=== PATIENT | male | born 1950 | race Caucasian/White ===

== ENCOUNTER → 2021-01-12 08:40 | Outpatient (CLI) | payer MEDICARE, OTHER, SELFPAY ==
[2021-01-12 13:24] LABS: COVID19 -Nasal RAPID Negative (Negative)
== END ==
PROVIDERS: Visit Provider Nurse Practitioner Family
DX: Z20.822 Contact with and (suspected) exposure to COVID-19 (principal); Z01.812 Encounter for preprocedural laboratory examination
CPT/HCPCS: 87635; C9803

== ENCOUNTER 2021-01-13 08:15 | Day surgery (SDC) | payer MEDICARE, OTHER, SELFPAY ==
[2021-01-13 09:17] VITALS: BP 135/80; PULSE 79; RESP 16; TEMP 36.4; O2SAT 97; BMI 29.0
[2021-01-13] MEDS: PROPARACAINE 0.5% OPHTH SOL 2 DROPS EYE-OP (09:23)
[2021-01-13] MEDS: CATARACT EYE COMPOUND (10 DROPS/SYRINGE) 3 DROPS EYE-OP (09:23)
--- NOTE | 2021-01-13 10:01 | PM.PREOP ---
Pre-operative Note Interval Note History & Physical reviewed/Exam performed by Physician: Yes Changes to H&P: No
--- NOTE | 2021-01-13 10:02 | PM.OP.1 ---
Operative Date/Time/Diagnoses Pre-op diagnosis: Nuclear cataract right eye Procedure & Clinicians Procedure: Cataract Surgery Same procedure as scheduled: Yes Surgeon: Kg Valencia Anesthesia Type: MAC +/- and Sedation Operative Notes Procedure in detail: Patient brought to the operating suite. Tetracaine drops placed in the right eye. Patient was prepped and draped in sterile manner. Wire lid speculum was placed in the eye. Betadine drops were placed on the eye. This was irrigated. Lidocaine jelly was placed on the eye. A paracentesis port was created with a side-port blade. 0.1 mL 1% preservative free lidocaine was injected into the anterior chamber. The anterior chamber was deepened with viscoelastic. 2.6 mm keratome was used to create a temporal clear corneal incision. The pupil was miotic from posterior synechiae. The synechiae were broken with second instrument. Cystotome and Utrata forceps were used to create continuous tear capsulorrhexis. Balanced salt solution was used to hydro dissect the nucleus. The phacoemulsification handpiece was inserted and the nucleus was removed using the stop and chop technique. The iris was floppy. The irrigation aspiration handpiece was inserted and the remaining cortex was removed. Anterior chamber was deepened with viscoelastic. An Bauer DIB00 intraocular lens with a power of 21.0 was injected into the capsular bag. Irrigation aspiration handpiece was inserted and the remaining viscoelastic was removed. Incision was hydrated with balanced salt solution and found to be leak free with pressure with Weck-Haley sponges. 0.1 mL Vigamox injected anterior chamber. 0.3 mL Kenalog 10 mg was injected subconjunctivally. Lid speculum was removed. The patient left the operating room in excellent condition. Complications: none Post-operative Condition: stable Disposition: same day surgery
[2021-01-13] MEDS: HYALURONATE SODIUM 30 MG-10 MG/ML SYRINGES 1 BOX INTRAOCULA (10:16)
[2021-01-13] MEDS: LIDOCAINE 2% (GLYDO) 6 ML GEL TOP (10:16)
[2021-01-13] MEDS: PHENYLEPHRINE/LIDOCAINE VIAL (OR) 0.2 ML EYE-OP (10:17)
[2021-01-13] MEDS: TETRACAINE 0.5% OPHTH DROPS 4 ML 2 DROPS EYE-OP (10:17)
[2021-01-13] MEDS: MOXIFLOXACIN INJ 4 MG/0.8 ML VIAL 0.5 MG EYE-OP (10:17)
[2021-01-13] MEDS: TRIAMCINOLONE 50 MG/5 ML VIAL INJ (10:17)
[2021-01-13] MEDS: BALANCED SALT IRRIG SOLN NO.2 500 ML, EPINEPHrine 1 MG IRR (10:18)
[2021-01-13 10:45] VITALS: BP 112/68; PULSE 70; RESP 20; TEMP 36.4; O2SAT 96
== END 2021-01-13 10:46 | disposition home or self-care (01) ==
PROVIDERS: Referring Provider Ophthalmology; Visit Provider Ophthalmology
PROC: (CPT 66984; principal; 2021-01-13 10:15)
DX: H25.11 Age-related nuclear cataract, right eye (principal); E78.00 Pure hypercholesterolemia, unspecified; I10 Essential (primary) hypertension
CPT/HCPCS: 66984; J0171; J2250; J3010; J3301

== ENCOUNTER → 2021-01-26 08:17 | Outpatient (CLI) | payer MEDICARE, OTHER, SELFPAY ==
[2021-01-26 11:13] LABS: COVID19 -Nasal RAPID Negative (Negative)
== END ==
PROVIDERS: Visit Provider Nurse Practitioner Family
DX: Z20.822 Contact with and (suspected) exposure to COVID-19 (principal); Z01.812 Encounter for preprocedural laboratory examination
CPT/HCPCS: 87635; C9803

== ENCOUNTER 2021-01-27 10:41 | Day surgery (SDC) | payer MEDICARE, OTHER, SELFPAY ==
[2021-01-27 11:37] VITALS: BP 134/82; PULSE 82; RESP 16; TEMP 36.4; O2SAT 96; BMI 29.0
[2021-01-27] MEDS: PROPARACAINE 0.5% OPHTH SOL 2 DROPS EYE-OP (11:37)
[2021-01-27] MEDS: CATARACT EYE COMPOUND (10 DROPS/SYRINGE) 3 DROPS EYE-OP (11:43)
--- NOTE | 2021-01-27 11:52 | PM.PREOP ---
Pre-operative Note Interval Note History & Physical reviewed/Exam performed by Physician: Yes Changes to H&P: No
--- NOTE | 2021-01-27 11:52 | PM.OP.1 ---
Operative Date/Time/Diagnoses Pre-op diagnosis: Nuclear Cataract Left eye Post-op diagnosis: same Procedure & Clinicians Same procedure as scheduled: Yes Surgeon: Kg Valencia Anesthesia Type: MAC +/- and Sedation Operative Notes Procedure in detail: Patient brought to the operating suite. Tetracaine drops placed in the left eye. Patient was prepped and draped in sterile manner. Wire lid speculum was placed in the eye. Betadine drops were placed on the eye. This was irrigated. Lidocaine jelly was placed on the eye. A paracentesis port was created with a side-port blade. 0.1 mL 1% preservative free lidocaine was injected into the anterior chamber. The anterior chamber was deepened with viscoelastic. 2.6 mm keratome was used to create a temporal clear corneal incision. Cystotome and Utrata forceps were used to create continuous tear capsulorrhexis. Balanced salt solution was used to hydro dissect the nucleus. The phacoemulsification handpiece was inserted and the nucleus was removed using the stop and chop technique. The irrigation aspiration handpiece was inserted and the remaining cortex was removed. Anterior chamber was deepened with viscoelastic. An Bauer DIB00 intraocular lens with a power of 21.5 was injected into the capsular bag. Irrigation aspiration handpiece was inserted and the remaining viscoelastic was removed. Incision was hydrated with balanced salt solution and found to be leak free with pressure with Weck-Haley sponges. 0.1 mL Vigamox injected anterior chamber. 0.3 mL Kenalog 10 mg was injected subconjunctivally. Lid speculum was removed. The patient left the operating room in excellent condition. Complications: none Post-operative Condition: stable Disposition: same day surgery
[2021-01-27] MEDS: MOXIFLOXACIN INJ 4 MG/0.8 ML VIAL 0.5 MG EYE-OP (12:21)
[2021-01-27] MEDS: LIDOCAINE 2% (GLYDO) 6 ML GEL TOP (12:21)
[2021-01-27] MEDS: HYALURONATE SODIUM 30 MG-10 MG/ML SYRINGES 1 BOX INTRAOCULA (12:21)
[2021-01-27] MEDS: PHENYLEPHRINE/LIDOCAINE VIAL (OR) 0.2 ML EYE-OP (12:21)
[2021-01-27] MEDS: BALANCED SALT IRRIG SOLN NO.2 500 ML, EPINEPHrine 1 MG IRR (12:22)
[2021-01-27] MEDS: TRIAMCINOLONE 50 MG/5 ML VIAL INJ (12:22)
[2021-01-27] MEDS: TETRACAINE 0.5% OPHTH DROPS 4 ML 2 DROPS EYE-OP (12:22)
[2021-01-27 12:32] VITALS: BP 112/73; PULSE 74; RESP 15; TEMP 36.4; O2SAT 95
[2021-01-27 12:40] VITALS: BP 109/69; PULSE 69; RESP 16; O2SAT 99
== END 2021-01-27 12:55 | disposition home or self-care (01) ==
PROVIDERS: Referring Provider Ophthalmology; Visit Provider Ophthalmology
PROC: (CPT 66984; principal; 2021-01-27 12:45)
DX: H25.12 Age-related nuclear cataract, left eye (principal)
CPT/HCPCS: 66984; J0171; J2250; J3010; J3301

== ENCOUNTER → 2022-02-16 13:12 | Outpatient (CLI) | payer MEDICARE, OTHER, SELFPAY ==
--- NOTE | 2022-02-16 13:14 | DI.RAD.S_ITS ---
PROCEDURE: XR KUB INDICATIONS: kidney stones TECHNIQUE: One view of the abdomen acquired. COMPARISON: None. FINDINGS: Surgical changes and devices: Bilateral hip arthroplasties. Bowel: Bowel gas pattern is normal. Soft tissues: No definite renal stones are identified. Small densities are identified in expected region of the renal shadows which appear related to stool in the right and transverse colon.. Visualized solid organ contours appear normal in size. Hernia mesh anchors noted. Bones: No suspicious bony lesions. IMPRESSION: No definite renal stone by plain film radiograph. Consider CT KUB for additional evaluation if there is continued concern for renal stone. Dictated by: Linda Underwood MD, PhD on 02/16/2022 at 14:17 Approved by: Linda Underwood MD, PhD on 02/16/2022 at 14:18
== END ==
PROVIDERS: PCP Internal Medicine; Referring Provider Specialist; Visit Provider Specialist
DX: N40.1 Benign prostatic hyperplasia with lower urinary tract symptoms (principal); N13.8 Other obstructive and reflux uropathy
CPT/HCPCS: 74018

== ENCOUNTER → 2022-08-19 09:56 | Outpatient (CLI) | payer MEDICARE, OTHER, SELFPAY ==
--- NOTE | 2022-08-19 10:01 | DI.RAD.S_ITS ---
PROCEDURE: XR KUB INDICATIONS: possible kidney stones TECHNIQUE: One view of the abdomen acquired. COMPARISON: [facility], CR, XR KUB, 02/16/2022, 13:28. FINDINGS: Surgical changes and devices: Bilateral hip arthroplasty. Bowel: Bowel gas pattern is normal. Soft tissues: 5 mm calcification projects over the superior pole left kidney. 5 memory calcification projects over the inferior pole right kidney.. Visualized solid organ contours appear normal in size. Bones: No suspicious bony lesions. IMPRESSION: Calcifications projecting over the bilateral kidneys. Dictated by: Jhon Lombardo M.D. on 08/19/2022 at 11:50 Transcribed by: DEVIN on 08/19/2022 at 11:50 Approved by: Jhon Lombardo M.D. on 08/19/2022 at 15:54
[2022-08-19 11:44] LABS: Prostate Specific Antigen 1.74 ng/mL (0.10-4.00)
== END ==
PROVIDERS: PCP Internal Medicine; Referring Provider Specialist; Visit Provider Specialist
DX: N40.1 Benign prostatic hyperplasia with lower urinary tract symptoms (principal); N13.8 Other obstructive and reflux uropathy; N20.0 Calculus of kidney
CPT/HCPCS: 36415; 74018; 84153

== ENCOUNTER → 2022-10-01 06:43 | Outpatient (CLI) | payer MEDICARE, OTHER, SELFPAY ==
[2022-10-01 08:04] LABS: Hematocrit 41.9 % (41-53); Hemoglobin 14.6 g/dL (13.5-17.5); Mean Corpuscular HGB Conc 34.7 % (30-36); Mean Corpuscular Hemoglobin 31.5 PG (26-34); Mean Corpuscular Volume 90.7 fL (80-100); Platelet Count 238 X10^3/uL (150-400); Red Blood Cell Count 4.63 X10^6/uL (4.5-5.9); Red Cell Distribution Width 13.6 % (11.6-14.8); White Blood Cell Count 5.4 X10^3/uL (4.5-11.0)
[2022-10-01 08:26] LABS: Alanine Aminotransferase 27 IU/L (<50); Albumin 4.2 g/dL (3.5-5.0); Albumin Globulin Ratio 1.8 (1.0-2.8); Alkaline Phosphatase 67 U/L (38-126); Aspartate Aminotransferase 28 IU/L (17-59); BUN Creatinine Ratio 16.8 (6-22); Bilirubin Total 1.3 mg/dL (0.2-1.3); Blood Urea Nitrogen 16 mg/dL (9-20); Calcium 9.2 mg/dL (8.4-10.2); Carbon Dioxide 26 mmol/L (22-32); Chloride 105 mmol/L (98-107); Cholesterol 156 mg/dL (140-199); Estimated Glomerular Filt Rate > 60 mL/min (>60); Globulin 2.4 g/dL (1.7-4.1); Glucose 107 mg/dL (80-110); HDL Cholesterol 55 mg/dL (40-60); HEMOLYSIS < 15 (0-50); LDL Cholesterol Calculated 68 mg/dL (<100); Potassium 4.3 mmol/L (3.4-5.1); Sodium 140 mmol/L (137-145); Total Protein 6.6 g/dL (6.3-8.2); Triglycerides 163 mg/dL (35-150)
[2022-10-01 08:44] LABS: TSH w/ Reflex to FT4 1.33 uIU/mL (0.47-4.68)
[2022-10-02 05:25] LABS: Labcorp Hemoglobin (Hb) A1c 5.9 % (4.8-5.6)
== END ==
PROVIDERS: PCP Internal Medicine; Referring Provider Internal Medicine; Visit Provider Internal Medicine
DX: E78.2 Mixed hyperlipidemia; I10 Essential (primary) hypertension
CPT/HCPCS: 36415; 80053; 80061; 83036; 84443; 85027

== ENCOUNTER → 2023-07-20 10:30 | Outpatient (CLI) | payer MEDICARE, OTHER, SELFPAY ==
--- NOTE | 2023-07-20 10:31 | DI.RAD.S_ITS ---
PROCEDURE: XR KUB INDICATIONS: Kidney stones TECHNIQUE: One view of the abdomen acquired. COMPARISON: [facility], CR, XR KUB, 08/19/2022, 10:27. FINDINGS: Surgical changes and devices: Bilateral hip arthroplasties. Pelvic mesh. Bowel: Prominent stool in the colon. No dilated loops of small bowel identified. Soft tissues: Bilateral kidney stones are again seen. Right 0.5 cm. Left 0.8 cm. No suspicious abdominal calcifications. Visualized solid organ contours appear normal in size. Bones: No suspicious bony lesions. IMPRESSION: Bilateral kidney stones appear unchanged. Prominent stool in the colon. Dictated by: Cezar Mcgovern M.D. on 07/20/2023 at 17:30 Approved by: Cezar Mcgovern M.D. on 07/20/2023 at 17:31
[2023-07-20 12:26] LABS: Prostate Specific Antigen 1.67 ng/mL (0.10-4.00)
== END ==
PROVIDERS: PCP Internal Medicine; Referring Provider Specialist; Visit Provider Specialist
DX: N20.0 Calculus of kidney (principal); R97.20 Elevated prostate specific antigen [PSA]; Z87.898 Personal history of other specified conditions
CPT/HCPCS: 36415; 74018; 84153

== ENCOUNTER → 2023-11-07 11:45 | Outpatient (CLI) | payer MEDICARE, OTHER, SELFPAY ==
[2023-11-07 13:16] LABS: Aspartate Aminotransferase 27 IU/L (17-59); BUN Creatinine Ratio 15.7 (6-22); Blood Urea Nitrogen 16 mg/dL (9-20); Calcium 9.6 mg/dL (8.4-10.2); Carbon Dioxide 24 mmol/L (22-32); Chloride 106 mmol/L (98-107); Cholesterol 178 mg/dL (140-199); Estimated Glomerular Filt Rate > 60 mL/min (>60); Glucose 115 mg/dL (80-110); HDL Cholesterol 62 mg/dL (40-60); HEMOLYSIS < 15 (0-50); LDL Cholesterol Calculated 66 mg/dL (<100); Potassium 4.5 mmol/L (3.4-5.1); Sodium 139 mmol/L (137-145); Triglycerides 250 mg/dL (35-150)
[2023-11-07 14:06] LABS: Hemoglobin A1C% w Est Avg Glu 5.8 % (4.0-6.0)
== END ==
PROVIDERS: Family Provider Internal Medicine; PCP Internal Medicine; Referring Provider Internal Medicine; Visit Provider Internal Medicine
DX: R73.01 Impaired fasting glucose (principal); I10 Essential (primary) hypertension; E78.2 Mixed hyperlipidemia
CPT/HCPCS: 36415; 80048; 80061; 83036; 84450

== ENCOUNTER → 2024-01-05 13:32 | Outpatient (CLI) | payer MEDICARE, OTHER, SELFPAY ==
--- NOTE | 2024-01-05 13:33 | DI.RAD.S_ITS ---
PROCEDURE: XR KUB INDICATIONS: Nephrolithiasis TECHNIQUE: One view of the abdomen acquired. COMPARISON: [facility], CR, XR KUB, 07/20/2023, 10:47. FINDINGS: Stool gas pattern: Normal-no evidence of ileus or obstruction. No free intraperitoneal or extraperitoneal air. No gross evidence of ascites Soft tissues: 8 mm calcification over the inferior right kidney and 2 adjacent calcification over the inferior left kidney, 9 and 3 mm respectively , are likely nonobstructing calculi. There are 2 calcifications overl in the left true pelvis: 8 and 3 mm respectively which could represent distal left ureteral calculi. Organs: No gross evidence for organomegaly. IMPRESSION: Potential calculi overlying the inferior poles of both kidneys in the distal left ureter. Please correlate clinically Dictated by: Bong Regalado M.D. on 01/06/2024 at 8:11 Approved by: Bong Regalado M.D. on 01/06/2024 at 8:13
== END ==
PROVIDERS: Family Provider Internal Medicine; PCP Internal Medicine; Referring Provider Urology; Visit Provider Urology
DX: N20.0 Calculus of kidney (principal); N40.1 Benign prostatic hyperplasia with lower urinary tract symptoms; N13.8 Other obstructive and reflux uropathy
CPT/HCPCS: 74018

== ENCOUNTER → 2024-01-18 11:19 | Outpatient (CLI) | payer MEDICARE, OTHER, SELFPAY ==
--- NOTE | 2024-01-18 11:20 | DI.CT.S_ITS ---
PROCEDURE: CT KIDNEY URETER BLADDER (KUB) INDICATIONS: Left flank pain, concern for ureteral stone. TECHNIQUE: Axial sections were acquired from the lung bases to the pubic symphysis. Coronal and sagittal reformats were performed. For radiation dose reduction, the following was used: automated exposure control, adjustment of mA and/or kV according to patient size. COMPARISON: None. FINDINGS: Image quality: Diagnostic. Lower Chest: No significant findings. URINARY: Abnormal appearance of markedly enlarged prostate gland with lobulated bulging into the inferior base of the urinary bladder some of which may commonly be related to prostatic hypertrophy however prostate or bladder neoplasm could have this appearance and follow-up is needed. The prostate measures up to approximately 6 cm cc by 5.5 cm transverse by 4.0 cm AP with total volume approximately 68 cc. Left superior calyx nonobstructing renal calculus measures approximately 9 mm cc by 8 mm AP x 6 mm transverse maximal dimensions with Hounsfield units approximately 1159. Right inferior calyx nonobstructing renal calculus measures approximately 6 mm AP by 5 mm transverse 5 mm cc maximal dimensions with Hounsfield units approximately 897. Several calcifications in the left low pelvis appear to be within the urinary bladder suspected nonobstructing bladder calculi measuring approximately 4 mm, 3 mm and 2 mm. Several 1 mm phleboliths are noted in the pelvis as well. Moderate degenerate changes of the lower thoracic, lumbar spine with moderate levoscoliosis and suspected central stenoses most notably at T11-12, T12-L1, L1-2, L2-3, L3-4 with moderate to severe central stenosis. Suspected mild central stenosis at L4-5 and L5-S1. Evidence of prior anterior abdominal, bilateral inguinal hernia repair with mesh and metallic anchors. Bilateral hip arthroplasties with associated beam hardening artifacts partially limit evaluation of the pelvis. Right Kidney: No hydronephrosis. Right Ureter: No hydroureter. Left Kidney: No hydronephrosis. Left Ureter: No hydroureter. ABDOMEN / PELVIS: Liver: Liver is normal in size contour and attenuation. Gallbladder: No radiopaque gallstones or wall thickening. Biliary ducts: No biliary dilation. Pancreas: No ductal dilation. Spleen: Size is within normal limits. Adrenal Glands: No adrenal nodules. Stomach and Bowel: Normal caliber, without significant wall thickening. Peritoneum: No abnormal intraperitoneal fluid. No free air. Abdominal Nodes: No enlarged retroperitoneal or mesenteric lymph nodes. Vessels: Aorta and inferior vena cava are normal in size. Pelvic Nodes: Unremarkable. Miscellaneous: No inguinal hernias are seen. IMPRESSION: Abnormal markedly enlarged prostate gland with lobulated bulging into the inferior base of the urinary bladder as discussed above prostatic hypertrophy, prostate or bladder neoplasm could have this appearance and follow-up is needed. Follow-up is needed. Left renal nonobstructing calculus measures approximately 9 mm. Right nonobstructing renal calculus measures approximately 6 mm. Several suspected nonobstructing bladder calculi measuring approximately 4 mm, 3 mm and 2 mm. Moderate degenerative changes with moderate to severe central stenoses as discussed above. Dictated by: Nicko Tejada M.D. on 01/18/2024 at 14:32 Approved by: Nicko Tejada M.D. on 01/18/2024 at 14:51
== END ==
PROVIDERS: Family Provider Internal Medicine; PCP Internal Medicine; Referring Provider Urology; Visit Provider Urology
DX: N20.0 Calculus of kidney (principal); N40.0 Benign prostatic hyperplasia without lower urinary tract symptoms; R10.9 Unspecified abdominal pain; M47.814 Spondylosis without myelopathy or radiculopathy, thoracic region; M47.816 Spondylosis without myelopathy or radiculopathy, lumbar region; M48.061 Spinal stenosis, lumbar region without neurogenic claudication; Z96.643 Presence of artificial hip joint, bilateral
CPT/HCPCS: 74176

== ENCOUNTER → 2024-01-23 14:25 | Outpatient (CLI) | payer MEDICARE, OTHER, SELFPAY ==
[2024-01-23 15:46] LABS: Hematocrit 43.9 % (41-53); Mean Corpuscular HGB Conc 34.1 % (30-36); Mean Corpuscular Hemoglobin 31.6 PG (26-34); Mean Corpuscular Volume 92.7 fL (80-100); Platelet Count 224 X10^3/uL (150-400); Red Blood Cell Count 4.74 X10^6/uL (4.5-5.9); Red Cell Distribution Width 13.3 % (11.6-14.8); White Blood Cell Count 7.2 X10^3/uL (4.5-11.0)
[2024-01-23 15:56] LABS: Alanine Aminotransferase 21 IU/L (<50); Albumin 4.2 g/dL (3.5-5.0); Albumin Globulin Ratio 1.6 (1.0-2.8); Alkaline Phosphatase 63 U/L (38-126); Aspartate Aminotransferase 27 IU/L (17-59); BUN Creatinine Ratio 18.8 (6-22); Bilirubin Total 1.1 mg/dL (0.2-1.3); Blood Urea Nitrogen 19 mg/dL (9-20); Calcium 9.5 mg/dL (8.4-10.2); Carbon Dioxide 25 mmol/L (22-32); Chloride 106 mmol/L (98-107); Estimated Glomerular Filt Rate > 60 mL/min (>60); Globulin 2.7 g/dL (1.7-4.1); Glucose 119 mg/dL (80-110); HEMOLYSIS < 15 (0-50); Potassium 4.1 mmol/L (3.4-5.1); Sodium 137 mmol/L (137-145); Total Protein 6.9 g/dL (6.3-8.2)
[2024-01-23 16:27] LABS: TSH w/ Reflex to FT4 1.42 uIU/mL (0.47-4.68)
== END ==
PROVIDERS: Family Provider Internal Medicine; PCP Internal Medicine; Referring Provider Internal Medicine; Visit Provider Internal Medicine
DX: K59.01 Slow transit constipation (principal); Z86.79 Personal history of other diseases of the circulatory system
CPT/HCPCS: 36415; 80053; 84443; 85027

== ENCOUNTER 2024-01-25 11:30 | Outpatient (RCR) | payer MEDICARE, OTHER, SELFPAY ==
--- NOTE | 2023-11-02 14:20 | PT.OIE ---
Current Diagnoses Other chronic pain (11/02/23) Low back pain, unspecified (11/02/23) Other symptoms and signs involving the musculoskeletal system (11/02/23) Past Medical History (Last Reviewed 08/16/23 @ 11:34 by Percy Wing MD) Abrasion of skin of right lower leg Actinic keratosis (~1994) Allergic rhinitis Bilateral nephrolithiasis BPH (benign prostatic hyperplasia) BPH w urinary obs/LUTS Cataracts, bilateral (~2021) Chicken pox (~1984) Chronic back pain (~2016) Essential hypertension H/O nephrolithotomy with removal of calculi Hearing loss (~2018) History of atrial fibrillation History of colonic polyps History of elevated PSA (~2019) History of nephrolithiasis (~2021) Impaired fasting glucose Left-sided sensorineural hearing loss Mixed hyperlipidemia Nephrolithiasis Overweight Primary osteoarthritis involving multiple joints Skin cancer (~1995) Past Surgical History (Last Reviewed 08/16/23 @ 11:34 by Percy Wing MD) Anesthesia History of cataract removal with insertion of prosthetic lens (~2021) History of circumcision History of hip surgery History of urethral stent Visit Care Team Role Provider Type Mich Oneal MD Attending Provider Physician Family Provider Primary Care Provider Referring Provider Specialty: Internal Medicine Address: [address] [place] [address], [facility] Email: [email or web address] Physical Therapy Initial Evaluation PT-OP-A Visit Information Start: 11/01/23 16:45 Freq: Status: Active Protocol: Document 11/02/23 13:[address] [facility] (Rec: 11/02/23 13:[address] [facility] [id number]) Out-Patient Physical Therapy Visit Information Visit Information Visit Type Initial Evaluation Visit Start Time 13:01 Visit Stop Time 13:47 Visit Number 1 Evaluation Information Evaluation Date 11/02/23 Precautions Precautions legs give way occasionally, unpredictable PT-OP-B Current Condition Start: 11/01/23 16:45 Freq: Status: Active Protocol: Document 11/02/23 13:[address] [facility] (Rec: 11/02/23 13:[address] [facility] [id number]) Current Condition History of Current Condition Onset Date 2-3 years Current Complaints LBP History of Current Condition 2-3 yr history LBP gradual onset. Has had cortisone shot with min relief. Saw orthopedist. MRI showed stenosis. Takes anti- inflammatory. Activity level used to be run 3-5 miles per day, now walking just down to his boat and back to car. Pain increases with prolonged standing. HIstory paramjit XAVIER at [facility] 2014 and 2017 with good recovery. No other exercises besides walking but that is limited. Open to PT suggestion for aquatic exercises. Has trekking poles. Denies N/T, but reports burning in low back. States legs occasionally gives way, unpredictable. Walking up an incline much easier than down. Reports his left arch collapsed several years ago, he has orthotic, brace, and uses trekking pole or poles for balance and stability. Prior Treatments and Tests MRI: stenosis. Future Testing and Treatments Planned nothing planned Treatment Goals Patient/Caregiver Goals Decrease pain, improve activity tolerance Prior Functional Status Baseline Function- ADL's Independent Baseline Function- Mobility Independent Baseline Function- Gait indep, no device Current Functional Impairments (Reported) Functional Limitations- ADL's takes more time, pain with prolonged standing Functional Limitations- Mobility/Gait limited distance and time Functional Limitations- Work/School retired Functional Limitations- Recreation/ boating; reports if I can't Hobbies get this taken care of I may need to give up the boat. Personal Factors Other Personal Factors That May Effect has orthotic left shoe due to Therapy/Recovery collapse of left arch, has brace bult doesn't wear except for longer distances PT-OP-C Subjective Start: 11/01/23 16:45 Freq: Status: Active Protocol: Document 11/02/23 13:[address] [facility] (Rec: 11/02/23 13:[address] [facility] [id number]) OP-PT Subjective Patient Comments Patient Comments retired military pilot Patient Questionnaires Oswestry Low Back Index Oswestry Score 22 OP-PT Pain Assessment Location lumbar spine central Intensity 8 Scale Used CristinaKiet (Faces) Description Aching,Burning,Pressure Pain Alleviating Factors Lying Supine,Position,Sitting lumbar spine Intensity 8 Description Burning Pain Aggravating Factors Position,Standing,Walking Pain Alleviating Factors Inactivity,Lying Supine, Position,Sitting Home Pain Medication Use Pain Medications Used Yes Pain Behaviors Pain Behaviors Facial Grimacing,Wincing PT-OP-J Posture/Palpation/Skin Start: 11/01/23 16:45 Freq: Status: Active Protocol: Document 11/02/23 13:[address] [facility] (Rec: 11/02/23 13:[address] [facility] [id number]) Posture Evaluation Position Standing Head/C-Spine Posture Forward Head T-Spine Posture Increased Kyphosis L-Spine Posture Increased Lordosis Shoulder Posture (L) Elevated Arm Posture (L) Internally Rotated,(R) Internally Rotated Pelvis Posture Anteriorly Tilted Weight Distribution Weight Shifted Right Knee Posture (L) Genu Valgus Ankle/Foot Posture (L) Pronated Palpation Assessment Location lumbar spine Palpation Findings Muscle Guarding PT-OP-K Range of Motion Start: 11/01/23 16:45 Freq: Status: Active Protocol: Document 11/02/23 13:[address] [facility] (Rec: 11/02/23 13:[address] [facility] [id number]) Lumbar Spine Range of Motion Lumbar Spine Active Flexion 40 Extension 0 Rotation Left 10 Rotation Right 15 Lateral Flexion Left 20 Lateral Flexion Right 20 ROM Limitations Bony Restriction Hip Goniometric Range of Motion Hip paramjit Comments SLR R 50, L 55 Hip ROM Limitations Hip ROM Limitations Soft Tissue Tightness PT-OP-M Strength Start: 11/01/23 16:45 Freq: Status: Active Protocol: Document 11/02/23 13:[address] [facility] (Rec: 11/02/23 13:[address] [facility] [id number]) Trunk Strength Trunk Manual Muscle Testing Flexion 3+ Fair+ Extension 4- Good- Hip Strength Hip Manual Muscle Testing Left Flexion (L2) 4+ Good+ Extension (S1) 3+ Fair+ Abduction 3+ Fair+ External Rotation 4- Good- Internal Rotation 4 Good Right Flexion (L2) 4+ Good+ Extension (S1) 4- Good- Abduction 4- Good- Adduction 4- Good- External Rotation 4 Good Internal Rotation 4 Good Knee Strength Knee Manual Muscle Testing paramjit Flexion (S2) 4+ Good+ Extension (L3) 4+ Good+ Ankle/Foot Strength Ankle and Foot Manual Muscle Testing paramjit Dorsiflexion (L4) 4 Good Plantarflexion (S1) 4 Good PT-OP-T Assessment and Plan Start: 11/01/23 16:45 Freq: Status: Active Protocol: Document 11/02/23 13:[address] [facility] (Rec: 11/02/23 13:[address] [facility] [id number]) Physical Therapy Assessment Rehab Potential Rehabilitation Potential Good Evaluation Complexity Number of Personal Factors/Comorbidities 1-2 Number of Body Systems Impaired 3 Clinical Presentation at Evaluation Evolving Impairments Impairments Activity Tolerance,Pain,Soft Tissue Mobility,Strength Other Concerns Fall Risk moderate due to reported legs giving way unpredictably, denies falls Goals Three Impairment impairments in flexibility and strength Short Term Goal (STG) Patient to be instructed in individualized and progressive HEP for purposes of improving flexibility and strength in hips and core STG Duration 12/16/23 Airborne Weapons Technical Manager Goal (LTG) Patient to be independent and compliant with HEP and demonstrate improvedments in flexibility to WNL and strength to at least 4+/5 all muscle groups in hips and core for improved spinal support and function LTG Duration 02/02/24 Two Impairment Oswestry disability index score 22% Short Term Goal (STG) Improve Oswestry score to no greater than 15% as measure of improved function STG Duration 12/16/23 Airborne Weapons Technical Manager Goal (LTG) Improve Oswestry score to no greater than 10% as measure of improved function and quality of life. LTG Duration 02/02/24 One Impairment lumbar spine pain which increases with standing and walking as high as 8/10 Short Term Goal (STG) Patient will be able to stand for at least 10 min without an increase in pain STG Duration 12/16/23 Airborne Weapons Technical Manager Goal (LTG) Patient will be able to walk at least 1 mile without an increase in pain LTG Duration 02/02/24 Assessment Summary Assessment Patient presents to PT with function-limiting lumbar pain, MRI shows stenosis per patient report. Signs and symptoms consistent with stenosis with patient tolerating prolonged standing poorly , some relief with flexion. Patient has decreased flexibility throughout hips, and decreased muscle strength left hip abduction and extension as well as core muscle weakness. Feel he would benefit from skilled PT to address the above goals. He was instructed in anatomy and physiology of stenosis using spine model, instructed in strategies for relief in standing, sleeping positions, HEP for strengthening and flexibility, and spinal recovery position of 90/90. Aquatic exercise was encouraged for unloading of spine. POC was discussed and he was in agreement. Physical Therapy Plan Frequency and Duration Frequency of Treatment 2x/Week Duration of treatment (weeks) 12 Plan of Care Start Date 11/02/23 Plan of Care End Date 02/02/24 Therapeutic Interventions Therapeutic Interventions Gait Training,Home Exercise Program,Manual Therapy, Neuromuscular Re-education, Orthotic/Prosthetic Management ,Patient/Caregiver Education, Self-Care/Home Management,Soft Tissue Mobilization,Taping, Therapeutic Activities, Therapeutic Exercises Modalities Cold Pack/Ice Massage,Electric Stimulation,Hot Packs, Traction- Mechanical, Ultrasound Next Visit Focus/Plan Next Note Type Treatment Note Next Visit Plan Start with recumbant elliptical. Review HEP and progress as indicated with emphasis on flexion exercises for stenosis including add SKTC. Evaluate hip flexor and quad length.
--- NOTE | 2023-11-09 08:57 | PT.OTN ---
Current Diagnoses Other chronic pain (11/09/23) Low back pain, unspecified (11/09/23) Other symptoms and signs involving the musculoskeletal system (11/09/23) Physical Therapy Treatment Note PT-OP-A Visit Information Start: 11/01/23 16:45 Freq: Status: Active Protocol: Document 11/09/23 11:16 [facility] (Rec: 11/09/23 12:08 [facility] [id number]) Out-Patient Physical Therapy Visit Information Visit Information Visit Type Treatment Note Visit Start Time 11:16 Visit Stop Time 12:01 Visit Number 2 Evaluation Information Evaluation Date 11/02/23 Precautions Precautions legs give way occasionally, unpredictable PT-OP-B Current Condition Start: 11/01/23 16:45 Freq: Status: Active Protocol: Document 11/09/23 11:16 [facility] (Rec: 11/09/23 12:08 [facility] [id number]) Current Condition History of Current Condition Onset Date 2-3 years Current Complaints LBP History of Current Condition 2-3 yr history LBP gradual onset. Has had cortisone shot with min relief. Saw orthopedist. MRI showed stenosis. Takes anti- inflammatory. Activity level used to be run 3-5 miles per day, now walking just down to his boat and back to car. Pain increases with prolonged standing. HIstory paramjit XAVIER at [facility] 2014 and 2017 with good recovery. No other exercises besides walking but that is limited. Open to PT suggestion for aquatic exercises. Has trekking poles. Denies N/T, but reports burning in low back. States legs occasionally gives way, unpredictable. Walking up an incline much easier than down. Reports his left arch collapsed several years ago, he has orthotic, brace, and uses trekking pole or poles for balance and stability. Prior Treatments and Tests MRI: stenosis. Future Testing and Treatments Planned nothing planned PT-OP-C Subjective Start: 11/01/23 16:45 Freq: Status: Active Protocol: Document 11/09/23 11:16 [facility] (Rec: 11/09/23 12:08 [facility] [id number]) OP-PT Subjective Patient Comments Patient Comments brought shoes with ankle brace to show PT, willing to wear during PT session. REports feels hamstrings very tight, bridge painful in sciatica PT-OP-J Posture/Palpation/Skin Start: 11/01/23 16:45 Freq: Status: Active Protocol: Document 11/02/23 13:00 [facility] (Rec: 11/02/23 13:53 [facility] [id number]) Posture Evaluation Position Standing Head/C-Spine Posture Forward Head T-Spine Posture Increased Kyphosis L-Spine Posture Increased Lordosis Shoulder Posture (L) Elevated Arm Posture (L) Internally Rotated,(R) Internally Rotated Pelvis Posture Anteriorly Tilted Weight Distribution Weight Shifted Right Knee Posture (L) Genu Valgus Ankle/Foot Posture (L) Pronated Palpation Assessment Location lumbar spine Palpation Findings Muscle Guarding PT-OP-K Range of Motion Start: 11/01/23 16:45 Freq: Status: Active Protocol: Document 11/02/23 13:00 [facility] (Rec: 11/02/23 13:53 [facility] [id number]) Lumbar Spine Range of Motion Lumbar Spine Active Flexion 40 Extension 0 Rotation Left 10 Rotation Right 15 Lateral Flexion Left 20 Lateral Flexion Right 20 ROM Limitations Bony Restriction Hip Goniometric Range of Motion Hip paramjit Comments SLR R 50, L 55 Hip ROM Limitations Hip ROM Limitations Soft Tissue Tightness PT-OP-M Strength Start: 11/01/23 16:45 Freq: Status: Active Protocol: Document 11/02/23 13:00 [facility] (Rec: 11/02/23 13:53 [facility] [id number]) Trunk Strength Trunk Manual Muscle Testing Flexion 3+ Fair+ Extension 4- Good- Hip Strength Hip Manual Muscle Testing Left Flexion (L2) 4+ Good+ Extension (S1) 3+ Fair+ Abduction 3+ Fair+ External Rotation 4- Good- Internal Rotation 4 Good Right Flexion (L2) 4+ Good+ Extension (S1) 4- Good- Abduction 4- Good- Adduction 4- Good- External Rotation 4 Good Internal Rotation 4 Good Knee Strength Knee Manual Muscle Testing paramjit Flexion (S2) 4+ Good+ Extension (L3) 4+ Good+ Ankle/Foot Strength Ankle and Foot Manual Muscle Testing paramjit Dorsiflexion (L4) 4 Good Plantarflexion (S1) 4 Good PT-OP-Q Treatments Start: 11/01/23 16:45 Freq: Status: Active Protocol: Document 11/09/23 11:16 [facility] (Rec: 11/09/23 12:08 [facility] [id number]) Cardio Equipment Recumbent Stepper (Sci-Fit) Duration (Minutes) 8 Resistance 3 Seat Position 17 Therapeutic Exercises Supine Exercises piriformis stretch Reps/Minutes 2x30 figure 4 Reps/Minutes 2x30 SKTC Reps/Minutes 2x30 ball squeeze Equipment Used yellow ball Reps/Minutes 10x5 Comments cues for core activation HS stretch Supine Exercise Name hands behind thigh, active stretch Reps/Minutes 10x segmental bridge Reps/Minutes 10x Comments better domo, cues for pain-free pelvic tilt Reps/Minutes 10x Standing Exercises chair squat Reps/Minutes 10x Other Exercises child's pose Reps/Minutes 5x Comments small movement, modified cat/cow Reps/Minutes 5x Comments gentle Self-Care/Home Management Treatment Education Patient Education Body Mechanics,Home Exercise Program,Pain Management, Posture PT-OP-T Assessment and Plan Start: 11/01/23 16:45 Freq: Status: Active Protocol: Document 11/09/23 11:16 [facility] (Rec: 11/10/23 08:56 [facility] [id number]) Physical Therapy Assessment Other Concerns Fall Risk moderate due to reported legs giving way unpredictably, denies falls Goals Three Impairment impairments in flexibility and strength Short Term Goal (STG) Patient to be instructed in individualized and progressive HEP for purposes of improving flexibility and strength in hips and core STG Duration 12/16/23 Group Home Goal (LTG) Patient to be independent and compliant with HEP and demonstrate improvedments in flexibility to WNL and strength to at least 4+/5 all muscle groups in hips and core for improved spinal support and function LTG Duration 02/02/24 Two Impairment Oswestry disability index score 22% Short Term Goal (STG) Improve Oswestry score to no greater than 15% as measure of improved function STG Duration 12/16/23 Group Home Goal (LTG) Improve Oswestry score to no greater than 10% as measure of improved function and quality of life. LTG Duration 02/02/24 One Impairment lumbar spine pain which increases with standing and walking as high as 8/10 Short Term Goal (STG) Patient will be able to stand for at least 10 min without an increase in pain STG Duration 12/16/23 Controls Technician Goal (LTG) Patient will be able to walk at least 1 mile without an increase in pain LTG Duration 02/02/24 Assessment Summary Assessment Improved postural correction and core activation after further instruction today. Encouraged use of ankle brace for improved support and alignment. No pain with modification of bridge. Physical Therapy Plan Frequency and Duration Frequency of Treatment 2x/Week Duration of treatment (weeks) 12 Plan of Care Start Date 11/02/23 Plan of Care End Date 02/02/24 Therapeutic Interventions Therapeutic Interventions Gait Training,Home Exercise Program,Manual Therapy, Neuromuscular Re-education, Orthotic/Prosthetic Management ,Patient/Caregiver Education, Self-Care/Home Management,Soft Tissue Mobilization,Taping, Therapeutic Activities, Therapeutic Exercises Modalities Cold Pack/Ice Massage,Electric Stimulation,Hot Packs, Traction- Mechanical, Ultrasound Next Visit Focus/Plan Next Note Type Treatment Note Next Visit Plan Evaluate hip flexor and quad length. Continue progression of ther ex for stenosis with emphasis core stabilization, postural correction, avoid trunk extension.
--- NOTE | 2023-11-15 12:12 | PT.OTN ---
Current Diagnoses Other chronic pain (11/15/23) Low back pain, unspecified (11/15/23) Other symptoms and signs involving the musculoskeletal system (11/15/23) Physical Therapy Treatment Note PT-OP-A Visit Information Start: 11/01/23 16:45 Freq: Status: Active Protocol: Document 11/15/23 11:17 SAK (Rec: 11/15/23 12:12 [facility] [id number]) Out-Patient Physical Therapy Visit Information Visit Information Visit Type Treatment Note Visit Start Time 11:17 Visit Stop Time 12:01 Visit Number 3 Evaluation Information Evaluation Date 11/02/23 Precautions Precautions legs give way occasionally, unpredictable PT-OP-B Current Condition Start: 11/01/23 16:45 Freq: Status: Active Protocol: Document 11/15/23 11:17 SAK (Rec: 11/15/23 12:12 [facility] [id number]) Current Condition History of Current Condition Onset Date 2-3 years Current Complaints LBP History of Current Condition 2-3 yr history LBP gradual onset. Has had cortisone shot with min relief. Saw orthopedist. MRI showed stenosis. Takes anti- inflammatory. Activity level used to be run 3-5 miles per day, now walking just down to his boat and back to car. Pain increases with prolonged standing. HIstory paramjit XAVIER at [facility] 2014 and 2017 with good recovery. No other exercises besides walking but that is limited. Open to PT suggestion for aquatic exercises. Has trekking poles. Denies N/T, but reports burning in low back. States legs occasionally gives way, unpredictable. Walking up an incline much easier than down. Reports his left arch collapsed several years ago, he has orthotic, brace, and uses trekking pole or poles for balance and stability. Prior Treatments and Tests MRI: stenosis. Future Testing and Treatments Planned nothing planned PT-OP-C Subjective Start: 11/01/23 16:45 Freq: Status: Active Protocol: Document 11/15/23 11:17 SAK (Rec: 11/15/23 12:12 [facility] [id number]) OP-PT Subjective Patient Comments Patient Comments No new c/o. More stiff and sore with weather. Some increase in pain after last session. Hasn't been as diligent with HEP as he would like. Thinks wearing his compression socks help with the stability of foot and ankle when walking. His has joined [employer] and he is thinking about it as well PT-OP-J Posture/Palpation/Skin Start: 11/01/23 16:45 Freq: Status: Active Protocol: Document 11/02/23 13:00 [facility] (Rec: 11/02/23 13:53 [facility] [id number]) Posture Evaluation Position Standing Head/C-Spine Posture Forward Head T-Spine Posture Increased Kyphosis L-Spine Posture Increased Lordosis Shoulder Posture (L) Elevated Arm Posture (L) Internally Rotated,(R) Internally Rotated Pelvis Posture Anteriorly Tilted Weight Distribution Weight Shifted Right Knee Posture (L) Genu Valgus Ankle/Foot Posture (L) Pronated Palpation Assessment Location lumbar spine Palpation Findings Muscle Guarding PT-OP-K Range of Motion Start: 11/01/23 16:45 Freq: Status: Active Protocol: Document 11/02/23 13:00 [facility] (Rec: 11/02/23 13:53 [facility] [id number]) Lumbar Spine Range of Motion Lumbar Spine Active Flexion 40 Extension 0 Rotation Left 10 Rotation Right 15 Lateral Flexion Left 20 Lateral Flexion Right 20 ROM Limitations Bony Restriction Hip Goniometric Range of Motion Hip paramjit Comments SLR R 50, L 55 Hip ROM Limitations Hip ROM Limitations Soft Tissue Tightness PT-OP-M Strength Start: 11/01/23 16:45 Freq: Status: Active Protocol: Document 11/02/23 13:00 [facility] (Rec: 11/02/23 13:53 [facility] [id number]) Trunk Strength Trunk Manual Muscle Testing Flexion 3+ Fair+ Extension 4- Good- Hip Strength Hip Manual Muscle Testing Left Flexion (L2) 4+ Good+ Extension (S1) 3+ Fair+ Abduction 3+ Fair+ External Rotation 4- Good- Internal Rotation 4 Good Right Flexion (L2) 4+ Good+ Extension (S1) 4- Good- Abduction 4- Good- Adduction 4- Good- External Rotation 4 Good Internal Rotation 4 Good Knee Strength Knee Manual Muscle Testing paramjit Flexion (S2) 4+ Good+ Extension (L3) 4+ Good+ Ankle/Foot Strength Ankle and Foot Manual Muscle Testing paramjit Dorsiflexion (L4) 4 Good Plantarflexion (S1) 4 Good PT-OP-Q Treatments Start: 11/01/23 16:45 Freq: Status: Active Protocol: Document 11/15/23 11:17 [facility] (Rec: 11/15/23 12:12 [facility] [id number]) Cardio Equipment Recumbent Stepper (Sci-Fit) Duration (Minutes) 10 Resistance 4 Seat Position 17 Other legs only last minute Gym Equipment Cable Column (Body Solid) hamstring curl Resistance 40 Reps/Time 10x2 Shuttle Recovery Unilateral Squats Resistance 37 Shuttle Recovery Platform Stable Reps/Time 10x Bilateral Squats Resistance 75 Shuttle Recovery Platform Stable Reps/Time 10x Therapeutic Exercises Supine Exercises SKTC Reps/Minutes 2x30 Sitting Exercises LAQ Resistance 2-5# Reps/Minutes 15 total Comments trying different weights for best for HEP Standing Exercises HS curl Resistance 4# ankle wt Reps/Minutes 10x monster walks Standing Exercise Name side, fwd Equipment Used L2 TB Reps/Minutes 10ft x 2 ea glut set Reps/Minutes 10x5 paleoff press Reps/Minutes 10x chair squat Equipment Used L2 TB, mirror Reps/Minutes 10x Comments cues for neutral LE alignment Self-Care/Home Management Treatment Education Patient Education Body Mechanics,Home Exercise Program,Pain Management, Posture PT-OP-T Assessment and Plan Start: 11/01/23 16:45 Freq: Status: Active Protocol: Document 11/15/23 11:17 SAK (Rec: 11/15/23 12:12 [facility] [id number]) Physical Therapy Assessment Other Concerns Fall Risk moderate due to reported legs giving way unpredictably, denies falls Goals Three Impairment impairments in flexibility and strength Short Term Goal (STG) Patient to be instructed in individualized and progressive HEP for purposes of improving flexibility and strength in hips and core STG Duration 12/16/23 Sales Incentive Analyst Goal (LTG) Patient to be independent and compliant with HEP and demonstrate improvedments in flexibility to WNL and strength to at least 4+/5 all muscle groups in hips and core for improved spinal support and function LTG Duration 02/02/24 Two Impairment Oswestry disability index score 22% Short Term Goal (STG) Improve Oswestry score to no greater than 15% as measure of improved function STG Duration 12/16/23 Skilled Nursing Goal (LTG) Improve Oswestry score to no greater than 10% as measure of improved function and quality of life. LTG Duration 02/02/24 One Impairment lumbar spine pain which increases with standing and walking as high as 8/10 Short Term Goal (STG) Patient will be able to stand for at least 10 min without an increase in pain STG Duration 12/16/23 Skilled Nursing Goal (LTG) Patient will be able to walk at least 1 mile without an increase in pain LTG Duration 02/02/24 Assessment Summary Assessment Spent most of session emphasis on LE strengthening with core stab, consideration of fitness center membership. Use of mirror and band for squats to facil more neutral LE alignment due to left LE genu valgus. Denied increase in pain though palpable crepitus left knee Physical Therapy Plan Frequency and Duration Frequency of Treatment 2x/Week Duration of treatment (weeks) 12 Plan of Care Start Date 11/02/23 Plan of Care End Date 02/02/24 Therapeutic Interventions Therapeutic Interventions Gait Training,Home Exercise Program,Manual Therapy, Neuromuscular Re-education, Orthotic/Prosthetic Management ,Patient/Caregiver Education, Self-Care/Home Management,Soft Tissue Mobilization,Taping, Therapeutic Activities, Therapeutic Exercises Modalities Cold Pack/Ice Massage,Electric Stimulation,Hot Packs, Traction- Mechanical, Ultrasound Next Visit Focus/Plan Next Note Type Treatment Note Next Visit Plan Evaluate hip flexor and quad length. Continue progression of ther ex for stenosis with emphasis core stabilization, postural correction, avoid trunk extension.
--- NOTE | 2023-11-17 12:12 | PT.OTN ---
Current Diagnoses Other chronic pain (11/17/23) Low back pain, unspecified (11/17/23) Other symptoms and signs involving the musculoskeletal system (11/17/23) Physical Therapy Treatment Note PT-OP-A Visit Information Start: 11/01/23 16:45 Freq: Status: Active Protocol: Document 11/17/23 11:19 SAK (Rec: 11/17/23 12:11 [facility] [id number]) Out-Patient Physical Therapy Visit Information Visit Information Visit Type Treatment Note Visit Start Time 11:17 Visit Stop Time 12:01 Visit Number 3 Evaluation Information Evaluation Date 11/02/23 Precautions Precautions legs give way occasionally, unpredictable PT-OP-B Current Condition Start: 11/01/23 16:45 Freq: Status: Active Protocol: Document 11/17/23 11:19 SAK (Rec: 11/17/23 12:11 [facility] [id number]) Current Condition History of Current Condition Onset Date 2-3 years Current Complaints LBP History of Current Condition 2-3 yr history LBP gradual onset. Has had cortisone shot with min relief. Saw orthopedist. MRI showed stenosis. Takes anti- inflammatory. Activity level used to be run 3-5 miles per day, now walking just down to his boat and back to car. Pain increases with prolonged standing. HIstory paramjit XAIVER at [facility] 2014 and 2017 with good recovery. No other exercises besides walking but that is limited. Open to PT suggestion for aquatic exercises. Has trekking poles. Denies N/T, but reports burning in low back. States legs occasionally gives way, unpredictable. Walking up an incline much easier than down. Reports his left arch collapsed several years ago, he has orthotic, brace, and uses trekking pole or poles for balance and stability. Prior Treatments and Tests MRI: stenosis. Future Testing and Treatments Planned nothing planned PT-OP-C Subjective Start: 11/01/23 16:45 Freq: Status: Active Protocol: Document 11/17/23 11:19 SAK (Rec: 11/17/23 12:11 [facility] [id number]) OP-PT Subjective Patient Comments Patient Comments reports right hip muscle soreness but doesn't think pain. PT-OP-J Posture/Palpation/Skin Start: 11/01/23 16:45 Freq: Status: Active Protocol: Document 11/02/23 13:00 SAK (Rec: 11/02/23 13:53 [facility] [id number]) Posture Evaluation Position Standing Head/C-Spine Posture Forward Head T-Spine Posture Increased Kyphosis L-Spine Posture Increased Lordosis Shoulder Posture (L) Elevated Arm Posture (L) Internally Rotated,(R) Internally Rotated Pelvis Posture Anteriorly Tilted Weight Distribution Weight Shifted Right Knee Posture (L) Genu Valgus Ankle/Foot Posture (L) Pronated Palpation Assessment Location lumbar spine Palpation Findings Muscle Guarding PT-OP-K Range of Motion Start: 11/01/23 16:45 Freq: Status: Active Protocol: Document 11/02/23 13:00 [facility] (Rec: 11/02/23 13:53 [facility] [id number]) Lumbar Spine Range of Motion Lumbar Spine Active Flexion 40 Extension 0 Rotation Left 10 Rotation Right 15 Lateral Flexion Left 20 Lateral Flexion Right 20 ROM Limitations Bony Restriction Hip Goniometric Range of Motion Hip paramjit Comments SLR R 50, L 55 Hip ROM Limitations Hip ROM Limitations Soft Tissue Tightness PT-OP-M Strength Start: 11/01/23 16:45 Freq: Status: Active Protocol: Document 11/02/23 13:00 [facility] (Rec: 11/02/23 13:53 [facility] [id number]) Trunk Strength Trunk Manual Muscle Testing Flexion 3+ Fair+ Extension 4- Good- Hip Strength Hip Manual Muscle Testing Left Flexion (L2) 4+ Good+ Extension (S1) 3+ Fair+ Abduction 3+ Fair+ External Rotation 4- Good- Internal Rotation 4 Good Right Flexion (L2) 4+ Good+ Extension (S1) 4- Good- Abduction 4- Good- Adduction 4- Good- External Rotation 4 Good Internal Rotation 4 Good Knee Strength Knee Manual Muscle Testing paramjit Flexion (S2) 4+ Good+ Extension (L3) 4+ Good+ Ankle/Foot Strength Ankle and Foot Manual Muscle Testing paramjit Dorsiflexion (L4) 4 Good Plantarflexion (S1) 4 Good PT-OP-Q Treatments Start: 11/01/23 16:45 Freq: Status: Active Protocol: Document 11/17/23 11:19 [facility] (Rec: 11/17/23 12:11 [facility] [id number]) Cardio Equipment Recumbent Stepper (Sci-Fit) Duration (Minutes) 10 Resistance 4 Seat Position 17 Other legs only last 5 minute Gym Equipment Cable Column (Body Solid) hamstring curl Resistance 40 Reps/Time 10x2 Shuttle Recovery Unilateral Squats Resistance 37 Shuttle Recovery Platform Stable Reps/Time 10x Bilateral Squats Resistance 75 Shuttle Recovery Platform Stable Reps/Time 10x Shuttle Balance chains red Details bal and wt shift Therapeutic Exercises Supine Exercises quad stretch Reps/Minutes 2x 30 Comments manual Edison stretch Reps/Minutes 2x 30 Sidelying Exercises clam Reps/Minutes 10 Comments cues for core activation and alignment hip ab Reps/Minutes 10x Comments cues for core activation and alignment Standing Exercises paleoff press Side bilateral Reps/Minutes 10x Self-Care/Home Management Treatment Education Patient Education Body Mechanics,Home Exercise Program,Pain Management, Posture PT-OP-T Assessment and Plan Start: 11/01/23 16:45 Freq: Status: Active Protocol: Document 11/17/23 11:19 SAK (Rec: 11/17/23 12:11 SAK [id number]) Physical Therapy Assessment Other Concerns Fall Risk moderate due to reported legs giving way unpredictably, denies falls Goals Three Impairment impairments in flexibility and strength Short Term Goal (STG) Patient to be instructed in individualized and progressive HEP for purposes of improving flexibility and strength in hips and core STG Duration 12/16/23 Long-Term Goal (LTG) Patient to be independent and compliant with HEP and demonstrate improvedments in flexibility to WNL and strength to at least 4+/5 all muscle groups in hips and core for improved spinal support and function LTG Duration 02/02/24 Two Impairment Oswestry disability index score 22% Short Term Goal (STG) Improve Oswestry score to no greater than 15% as measure of improved function STG Duration 12/16/23 Long-Term Goal (LTG) Improve Oswestry score to no greater than 10% as measure of improved function and quality of life. LTG Duration 02/02/24 One Impairment lumbar spine pain which increases with standing and walking as high as 8/10 Short Term Goal (STG) Patient will be able to stand for at least 10 min without an increase in pain STG Duration 12/16/23 Long-Term Goal (LTG) Patient will be able to walk at least 1 mile without an increase in pain LTG Duration 02/02/24 Assessment Summary Assessment Added clam and sidelying hip abduction to HEP. Patient having muscle soreness but no increase in pain. Trial shuttle balance with cues for core activation required CGA to min assist and frequent UE support Physical Therapy Plan Frequency and Duration Frequency of Treatment 2x/Week Duration of treatment (weeks) 12 Plan of Care Start Date 11/02/23 Plan of Care End Date 02/02/24 Therapeutic Interventions Therapeutic Interventions Gait Training,Home Exercise Program,Manual Therapy, Neuromuscular Re-education, Orthotic/Prosthetic Management ,Patient/Caregiver Education, Self-Care/Home Management,Soft Tissue Mobilization,Taping, Therapeutic Activities, Therapeutic Exercises Modalities Cold Pack/Ice Massage,Electric Stimulation,Hot Packs, Traction- Mechanical, Ultrasound Next Visit Focus/Plan Next Note Type Treatment Note Next Visit Plan Continue progression of ther ex for stenosis with emphasis core stabilization, postural correction, avoid trunk extension.
--- NOTE | 2023-11-22 09:45 | PT.OTN ---
Current Diagnoses Other chronic pain (11/22/23) Low back pain, unspecified (11/22/23) Other symptoms and signs involving the musculoskeletal system (11/22/23) Physical Therapy Treatment Note PT-OP-A Visit Information Start: 11/01/23 16:45 Freq: Status: Active Protocol: Document 11/22/23 09:02 SP (Rec: 11/22/23 09:52 SP [id number]) Out-Patient Physical Therapy Visit Information Visit Information Visit Type Treatment Note Visit Start Time 09:02 Visit Stop Time 09:45 Visit Number 4 Number of LAUNDRY MACHINE OPERATOR Visits 1 Evaluation Information Evaluation Date 11/02/23 Precautions Precautions legs give way occasionally, unpredictable PT-OP-B Current Condition Start: 11/01/23 16:45 Freq: Status: Active Protocol: Document 11/17/23 11:19 SAK (Rec: 11/17/23 12:11 SAK [id number]) Current Condition History of Current Condition Onset Date 2-3 years Current Complaints LBP History of Current Condition 2-3 yr history LBP gradual onset. Has had cortisone shot with min relief. Saw orthopedist. MRI showed stenosis. Takes anti- inflammatory. Activity level used to be run 3-5 miles per day, now walking just down to his boat and back to car. Pain increases with prolonged standing. HIstory paramjit XAVIER at [facility] 2014 and 2017 with good recovery. No other exercises besides walking but that is limited. Open to PT suggestion for aquatic exercises. Has trekking poles. Denies N/T, but reports burning in low back. States legs occasionally gives way, unpredictable. Walking up an incline much easier than down. Reports his left arch collapsed several years ago, he has orthotic, brace, and uses trekking pole or poles for balance and stability. Prior Treatments and Tests MRI: stenosis. Future Testing and Treatments Planned nothing planned PT-OP-C Subjective Start: 11/01/23 16:45 Freq: Status: Active Protocol: Document 11/22/23 09:02 SP (Rec: 11/22/23 09:52 SP [id number]) OP-PT Subjective Patient Comments Patient Comments Pt reports sore after PT tx but always stiffness. He stated might try get little later appts to give time warm up before coming to tx. IF just stand back gets sore and burning, has to take baby steps initially. He reported his L arch is Blown uses orthotics in B shoes for added support and Hx dual hip replacements. PT-OP-J Posture/Palpation/Skin Start: 11/01/23 16:45 Freq: Status: Active Protocol: Document 11/02/23 13:00 [facility] (Rec: 11/02/23 13:53 [facility] [id number]) Posture Evaluation Position Standing Head/C-Spine Posture Forward Head T-Spine Posture Increased Kyphosis L-Spine Posture Increased Lordosis Shoulder Posture (L) Elevated Arm Posture (L) Internally Rotated,(R) Internally Rotated Pelvis Posture Anteriorly Tilted Weight Distribution Weight Shifted Right Knee Posture (L) Genu Valgus Ankle/Foot Posture (L) Pronated Palpation Assessment Location lumbar spine Palpation Findings Muscle Guarding PT-OP-K Range of Motion Start: 11/01/23 16:45 Freq: Status: Active Protocol: Document 11/02/23 13:00 SAK (Rec: 11/02/23 13:53 [facility] [id number]) Lumbar Spine Range of Motion Lumbar Spine Active Flexion 40 Extension 0 Rotation Left 10 Rotation Right 15 Lateral Flexion Left 20 Lateral Flexion Right 20 ROM Limitations Bony Restriction Hip Goniometric Range of Motion Hip paramjit Comments SLR R 50, L 55 Hip ROM Limitations Hip ROM Limitations Soft Tissue Tightness PT-OP-M Strength Start: 11/01/23 16:45 Freq: Status: Active Protocol: Document 11/02/23 13:00 [facility] (Rec: 11/02/23 13:53 [facility] [id number]) Trunk Strength Trunk Manual Muscle Testing Flexion 3+ Fair+ Extension 4- Good- Hip Strength Hip Manual Muscle Testing Left Flexion (L2) 4+ Good+ Extension (S1) 3+ Fair+ Abduction 3+ Fair+ External Rotation 4- Good- Internal Rotation 4 Good Right Flexion (L2) 4+ Good+ Extension (S1) 4- Good- Abduction 4- Good- Adduction 4- Good- External Rotation 4 Good Internal Rotation 4 Good Knee Strength Knee Manual Muscle Testing paramjit Flexion (S2) 4+ Good+ Extension (L3) 4+ Good+ Ankle/Foot Strength Ankle and Foot Manual Muscle Testing paramjit Dorsiflexion (L4) 4 Good Plantarflexion (S1) 4 Good PT-OP-Q Treatments Start: 11/01/23 16:45 Freq: Status: Active Protocol: Document 11/22/23 09:02 SP (Rec: 11/22/23 09:52 SP [id number]) Cardio Equipment Recumbent Stepper (Sci-Fit) Duration (Minutes) 10 Resistance 4 Seat Position 17 Other legs only last 5 minute Gym Equipment Shuttle Recovery Unilateral Squats Details tactile cue feet //, knee abd midline L Resistance 37 Shuttle Recovery Platform Stable Reps/Time x15- paramjit Bilateral Squats Details tactile cue feet //, knee abd midline L Resistance 75 (3 navy) Shuttle Recovery Platform Stable Reps/Time x20 Therapeutic Exercises Sidelying Exercises clam Reps/Minutes 10 Comments cues for core activation and alignment Standing Exercises quad stretch Standing Exercise Name reviewed past standing at stairs Side bilateral Equipment Used rail support, foot propped on 2-3rd step behind (6 step) Reps/Minutes 20 SH Comments good quad stretch Manual Therapy Treatment Soft Tissue Mobilization Lleg Body Location quad, ITB, HS, calf Mobilization Type Instrument Assisted,Strumming Comments hooklying on shuttle recovery. Ed self use rolling pin home good response, tension reduction continue leg press reps with less lateral knee discomfort. PT-OP-T Assessment and Plan Start: 11/01/23 16:45 Freq: Status: Active Protocol: Document 11/22/23 09:02 SP (Rec: 11/22/23 09:52 SP [id number]) Physical Therapy Assessment Goals Three Impairment impairments in flexibility and strength Short Term Goal (STG) Patient to be instructed in individualized and progressive HEP for purposes of improving flexibility and strength in hips and core STG Duration 12/16/23 Fpc Goal (LTG) Patient to be independent and compliant with HEP and demonstrate improvedments in flexibility to WNL and strength to at least 4+/5 all muscle groups in hips and core for improved spinal support and function LTG Duration 02/02/24 Two Impairment Oswestry disability index score 22% Short Term Goal (STG) Improve Oswestry score to no greater than 15% as measure of improved function STG Duration 12/16/23 Fpc Goal (LTG) Improve Oswestry score to no greater than 10% as measure of improved function and quality of life. LTG Duration 02/02/24 One Impairment lumbar spine pain which increases with standing and walking as high as 8/10 Short Term Goal (STG) Patient will be able to stand for at least 10 min without an increase in pain STG Duration 12/16/23 Chartered Financial Analyst Goal (LTG) Patient will be able to walk at least 1 mile without an increase in pain LTG Duration 02/02/24 Assessment Summary Assessment Pt good effort quad and hip abductor tiring, less lateral L knee discomfort post manual use rolling pin and tension reduction will continue home. REviewed past standing quad stretch as alternative home support use step and rail support worked well in PT. Time spent appt adjustment needed while performing ex to allow PT/LAUNDRY MACHINE OPERATOR visits for assist progression. Physical Therapy Plan Frequency and Duration Frequency of Treatment 2x/Week Duration of treatment (weeks) 12 Plan of Care Start Date 11/02/23 Plan of Care End Date 02/02/24 Therapeutic Interventions Therapeutic Interventions Gait Training,Home Exercise Program,Manual Therapy, Neuromuscular Re-education, Orthotic/Prosthetic Management ,Patient/Caregiver Education, Self-Care/Home Management,Soft Tissue Mobilization,Taping, Therapeutic Activities, Therapeutic Exercises Modalities Cold Pack/Ice Massage,Electric Stimulation,Hot Packs, Traction- Mechanical, Ultrasound Next Visit Focus/Plan Next Note Type Treatment Note Next Visit Plan Continue progression of ther ex for stenosis with emphasis core stabilization, postural correction, avoid trunk extension.
--- NOTE | 2023-11-24 15:39 | PT.OTN ---
Current Diagnoses Other chronic pain (11/24/23) Low back pain, unspecified (11/24/23) Other symptoms and signs involving the musculoskeletal system (11/24/23) Physical Therapy Treatment Note PT-OP-A Visit Information Start: 11/01/23 16:45 Freq: Status: Active Protocol: Document 11/24/23 14:30 [facility] (Rec: 11/24/23 15:37 [facility] [id number]) Out-Patient Physical Therapy Visit Information Visit Information Visit Type Treatment Note Visit Start Time 14:31 Visit Number 5 Number of MANUFACTURING PRODUCTION MANAGER Visits 0 Evaluation Information Evaluation Date 11/02/23 PT-OP-B Current Condition Start: 11/01/23 16:45 Freq: Status: Active Protocol: Document 11/24/23 14:30 SAK (Rec: 11/24/23 15:37 [facility] [id number]) Current Condition History of Current Condition Onset Date 2-3 years Current Complaints LBP History of Current Condition 2-3 yr history LBP gradual onset. Has had cortisone shot with min relief. Saw orthopedist. MRI showed stenosis. Takes anti- inflammatory. Activity level used to be run 3-5 miles per day, now walking just down to his boat and back to car. Pain increases with prolonged standing. HIstory paramjit XAVIER at [facility] 2014 and 2016 with good recovery. No other exercises besides walking but that is limited. Open to PT suggestion for aquatic exercises. Has trekking poles. Denies N/T, but reports burning in low back. States legs occasionally gives way, unpredictable. Walking up an incline much easier than down. Reports his left arch collapsed several years ago, he has orthotic, brace, and uses trekking pole or poles for balance and stability. Prior Treatments and Tests MRI: stenosis. Future Testing and Treatments Planned nothing planned PT-OP-C Subjective Start: 11/01/23 16:45 Freq: Status: Active Protocol: Document 11/24/23 14:30 [facility] (Rec: 11/24/23 15:38 [facility] [id number]) OP-PT Subjective Patient Comments Patient Comments Some soreness after PT, continues to be frustrated by limited ability to stand or walk. PT-OP-J Posture/Palpation/Skin Start: 11/01/23 16:45 Freq: Status: Active Protocol: Document 11/02/23 13:00 [facility] (Rec: 11/02/23 13:53 [facility] [id number]) Posture Evaluation Position Standing Head/C-Spine Posture Forward Head T-Spine Posture Increased Kyphosis L-Spine Posture Increased Lordosis Shoulder Posture (L) Elevated Arm Posture (L) Internally Rotated,(R) Internally Rotated Pelvis Posture Anteriorly Tilted Weight Distribution Weight Shifted Right Knee Posture (L) Genu Valgus Ankle/Foot Posture (L) Pronated Palpation Assessment Location lumbar spine Palpation Findings Muscle Guarding PT-OP-K Range of Motion Start: 11/01/23 16:45 Freq: Status: Active Protocol: Document 11/02/23 13:00 [facility] (Rec: 11/02/23 13:53 [facility] [id number]) Lumbar Spine Range of Motion Lumbar Spine Active Flexion 40 Extension 0 Rotation Left 10 Rotation Right 15 Lateral Flexion Left 20 Lateral Flexion Right 20 ROM Limitations Bony Restriction Hip Goniometric Range of Motion Hip paramjit Comments SLR R 50, L 55 Hip ROM Limitations Hip ROM Limitations Soft Tissue Tightness PT-OP-M Strength Start: 11/01/23 16:45 Freq: Status: Active Protocol: Document 11/02/23 13:00 [facility] (Rec: 11/02/23 13:53 [facility] [id number]) Trunk Strength Trunk Manual Muscle Testing Flexion 3+ Fair+ Extension 4- Good- Hip Strength Hip Manual Muscle Testing Left Flexion (L2) 4+ Good+ Extension (S1) 3+ Fair+ Abduction 3+ Fair+ External Rotation 4- Good- Internal Rotation 4 Good Right Flexion (L2) 4+ Good+ Extension (S1) 4- Good- Abduction 4- Good- Adduction 4- Good- External Rotation 4 Good Internal Rotation 4 Good Knee Strength Knee Manual Muscle Testing paramjit Flexion (S2) 4+ Good+ Extension (L3) 4+ Good+ Ankle/Foot Strength Ankle and Foot Manual Muscle Testing paramjit Dorsiflexion (L4) 4 Good Plantarflexion (S1) 4 Good PT-OP-Q Treatments Start: 11/01/23 16:45 Freq: Status: Active Protocol: Document 11/24/23 14:30 [facility] (Rec: 11/24/23 15:37 [facility] [id number]) Cardio Equipment Recumbent Stepper (Sci-Fit) Duration (Minutes) 10 Resistance 4 Seat Position 17 Other legs only last 5 minute Gym Equipment Cable Column (Body Solid) hamstring curl Resistance 40 Reps/Time 10x2 Shuttle Recovery Unilateral Squats Details tactile cue feet //, knee abd midline L Resistance 37 Shuttle Recovery Platform Stable Reps/Time x15- paramjit Bilateral Squats Details tactile cue feet //, knee abd midline L Resistance 75 (3 navy) Shuttle Recovery Platform Stable Reps/Time x20 Sport Cord cord green Exercise Details fwd x 5, side x 3 ea Cord/Resistance green Therapeutic Exercises Supine Exercises segmental bridge Reps/Minutes 10x Comments better domo, cues for pain-free pelvic tilt Reps/Minutes 5x Standing Exercises hip ext Reps/Minutes 10x hip ab Reps/Minutes 10x quad stretch Standing Exercise Name reviewed past standing at stairs Side bilateral Equipment Used rail support, foot propped on 2-3rd step behind (6 step) Reps/Minutes 20 SH Comments good quad stretch Therapeutic Activity Therapeutic Activity spinal confucianism Reps/Minutes 5 min Comments issued handout to try at home laying on floor, legs on chair or couch Manual Therapy Treatment Soft Tissue Mobilization Lleg Body Location quad, ITB, HS, calf Mobilization Type Instrument Assisted,Strumming Comments hooklying on shuttle recovery. Ed self use rolling pin home good response, tension reduction continue leg press reps with less lateral knee discomfort. Manual Traction Lumbar Body Position 90/90 Reps/Duration 10 min Comments legs on traction bench, use of towels on pt thighs, strap Self-Care/Home Management Treatment Education Patient Education Body Mechanics,Home Exercise Program,Pain Management, Posture Other Education Further encouragement for aquatic exercise. PT-OP-T Assessment and Plan Start: 11/01/23 16:45 Freq: Status: Active Protocol: Document 11/24/23 14:30 [facility] (Rec: 11/24/23 15:37 [facility] [id number]) Physical Therapy Assessment Other Concerns Fall Risk moderate due to reported legs giving way unpredictably, denies falls Goals Three Impairment impairments in flexibility and strength Short Term Goal (STG) Patient to be instructed in individualized and progressive HEP for purposes of improving flexibility and strength in hips and core STG Duration 12/16/23 Food And Beverage Manager Goal (LTG) Patient to be independent and compliant with HEP and demonstrate improvedments in flexibility to WNL and strength to at least 4+/5 all muscle groups in hips and core for improved spinal support and function LTG Duration 02/02/24 Two Impairment Oswestry disability index score 22% Short Term Goal (STG) Improve Oswestry score to no greater than 15% as measure of improved function STG Duration 12/16/23 Custodial Goal (LTG) Improve Oswestry score to no greater than 10% as measure of improved function and quality of life. LTG Duration 02/02/24 One Impairment lumbar spine pain which increases with standing and walking as high as 8/10 Short Term Goal (STG) Patient will be able to stand for at least 10 min without an increase in pain STG Duration 12/16/23 Custodial Goal (LTG) Patient will be able to walk at least 1 mile without an increase in pain LTG Duration 02/02/24 Assessment Summary Assessment reviewed use of rolling pin for use at home, patient reports good benefit but hasn' t found his rolling pin at home yet. Trial 90/90 positioning for spinal confucianism and issued written handout. Trial manual traction in 90/90 position, patient uncertain of benefit. If helpful will consider use of [employer]. Physical Therapy Plan Frequency and Duration Frequency of Treatment 2x/Week Duration of treatment (weeks) 12 Plan of Care Start Date 11/02/23 Plan of Care End Date 02/02/24 Therapeutic Interventions Therapeutic Interventions Gait Training,Home Exercise Program,Manual Therapy, Neuromuscular Re-education, Orthotic/Prosthetic Management ,Patient/Caregiver Education, Self-Care/Home Management,Soft Tissue Mobilization,Taping, Therapeutic Activities, Therapeutic Exercises Modalities Cold Pack/Ice Massage,Electric Stimulation,Hot Packs, Traction- Mechanical, Ultrasound Next Visit Focus/Plan Next Note Type Treatment Note Next Visit Plan Evaluate response to 90/90, home use rolling pin, manual traction. Consider use of [facility]. Continue core stabilization, strengthening, and flexibility .
--- NOTE | 2023-11-28 12:58 | PT.OTN ---
Current Diagnoses Other chronic pain (11/28/23) Low back pain, unspecified (11/28/23) Other symptoms and signs involving the musculoskeletal system (11/28/23) Physical Therapy Treatment Note PT-OP-A Visit Information Start: 11/01/23 16:45 Freq: Status: Active Protocol: Document 11/28/23 08:09 AB (Rec: 11/28/23 09:14 AB [id number]) Out-Patient Physical Therapy Visit Information Visit Information Visit Type Treatment Note Visit Note Access Code: [email or web address] Visit Start Time 09:04 Visit Stop Time 09:46 Visit Number 6 Number of BEFORE SCHOOL Visits 1 Evaluation Information Evaluation Date 11/02/23 Precautions Precautions legs give way occasionally, unpredictable PT-OP-B Current Condition Start: 11/01/23 16:45 Freq: Status: Active Protocol: Document 11/24/23 14:30 [facility] (Rec: 11/24/23 15:37 [facility] [id number]) Current Condition History of Current Condition Onset Date 2-3 years Current Complaints LBP History of Current Condition 2-3 yr history LBP gradual onset. Has had cortisone shot with min relief. Saw orthopedist. MRI showed stenosis. Takes anti- inflammatory. Activity level used to be run 3-5 miles per day, now walking just down to his boat and back to car. Pain increases with prolonged standing. HIstory paramjit XAVIER at [facility] 2014 and 2016 with good recovery. No other exercises besides walking but that is limited. Open to PT suggestion for aquatic exercises. Has trekking poles. Denies N/T, but reports burning in low back. States legs occasionally gives way, unpredictable. Walking up an incline much easier than down. Reports his left arch collapsed several years ago, he has orthotic, brace, and uses trekking pole or poles for balance and stability. Prior Treatments and Tests MRI: stenosis. Future Testing and Treatments Planned nothing planned PT-OP-C Subjective Start: 11/01/23 16:45 Freq: Status: Active Protocol: Document 11/28/23 08:09 AB (Rec: 11/28/23 09:14 AB [id number]) OP-PT Subjective Patient Comments Patient Comments Patient reports he is about the same, recovered from PT on by Tuesday, worked on boat on , recovered from that on Tuesday. Pain with standing persists. Patient reports he did not try the 90/ 90, cannot find rolling pin. Patient reports the leg gave way about 3-4 days ago, but he caught it. PT-OP-J Posture/Palpation/Skin Start: 11/01/23 16:45 Freq: Status: Active Protocol: Document 11/02/23 13:00 [facility] (Rec: 11/02/23 13:53 [facility] [id number]) Posture Evaluation Position Standing Head/C-Spine Posture Forward Head T-Spine Posture Increased Kyphosis L-Spine Posture Increased Lordosis Shoulder Posture (L) Elevated Arm Posture (L) Internally Rotated,(R) Internally Rotated Pelvis Posture Anteriorly Tilted Weight Distribution Weight Shifted Right Knee Posture (L) Genu Valgus Ankle/Foot Posture (L) Pronated Palpation Assessment Location lumbar spine Palpation Findings Muscle Guarding PT-OP-K Range of Motion Start: 11/01/23 16:45 Freq: Status: Active Protocol: Document 11/02/23 13:00 [facility] (Rec: 11/02/23 13:53 [facility] [id number]) Lumbar Spine Range of Motion Lumbar Spine Active Flexion 40 Extension 0 Rotation Left 10 Rotation Right 15 Lateral Flexion Left 20 Lateral Flexion Right 20 ROM Limitations Bony Restriction Hip Goniometric Range of Motion Hip paramjit Comments SLR R 50, L 55 Hip ROM Limitations Hip ROM Limitations Soft Tissue Tightness PT-OP-M Strength Start: 11/01/23 16:45 Freq: Status: Active Protocol: Document 11/02/23 13:00 [facility] (Rec: 11/02/23 13:53 [facility] [id number]) Trunk Strength Trunk Manual Muscle Testing Flexion 3+ Fair+ Extension 4- Good- Hip Strength Hip Manual Muscle Testing Left Flexion (L2) 4+ Good+ Extension (S1) 3+ Fair+ Abduction 3+ Fair+ External Rotation 4- Good- Internal Rotation 4 Good Right Flexion (L2) 4+ Good+ Extension (S1) 4- Good- Abduction 4- Good- Adduction 4- Good- External Rotation 4 Good Internal Rotation 4 Good Knee Strength Knee Manual Muscle Testing paramjit Flexion (S2) 4+ Good+ Extension (L3) 4+ Good+ Ankle/Foot Strength Ankle and Foot Manual Muscle Testing paramjit Dorsiflexion (L4) 4 Good Plantarflexion (S1) 4 Good PT-OP-Q Treatments Start: 11/01/23 16:45 Freq: Status: Active Protocol: Document 08/12/24 08:09 AB (Rec: 11/28/23 09:14 AB [id number]) Therapeutic Exercises Supine Exercises abdominal bracing with LE extension Side bilateral Reps/Minutes X10 Comments verbal cues modified restorative pose with breathing from diaphgragm Side bilateral Comments verbal cues and self tactile cues for breathing from diaphragm Edison stretch Side bilateral Reps/Minutes 2x 60 each LE Comments with AROM knee flexion HS stretch Supine Exercise Name hands behind thigh, active stretch Side bilateral Reps/Minutes 60 seconds X 2 with AROM knee X10 Standing Exercises hip flexor stretch Standing Exercise Name with UE support Reps/Minutes 60 sec X 1 each LE paleoff press Side bilateral Resistance level 3 band Reps/Minutes X15 X 2 each side Comments monitored for pain Manual Therapy Treatment Consent Patient gave verbal consent for manual Yes treatment Soft Tissue Mobilization bilateral hip flexors Mobilization Type Cross-Friction,Rolling Intensity/Depth Moderate Body Position Hooklying PT-OP-T Assessment and Plan Start: 11/01/23 16:45 Freq: Status: Active Protocol: Document 11/28/23 08:09 AB (Rec: 11/28/23 09:14 AB [id number]) Physical Therapy Assessment Other Concerns Fall Risk moderate due to reported legs giving way unpredictably, denies falls Goals Three Impairment impairments in flexibility and strength Short Term Goal (STG) Patient to be instructed in individualized and progressive HEP for purposes of improving flexibility and strength in hips and core STG Duration 12/16/23 Senior Care Goal (LTG) Patient to be independent and compliant with HEP and demonstrate improvedments in flexibility to WNL and strength to at least 4+/5 all muscle groups in hips and core for improved spinal support and function LTG Duration 02/02/24 Two Impairment Oswestry disability index score 22% Short Term Goal (STG) Improve Oswestry score to no greater than 15% as measure of improved function STG Duration 12/16/23 Senior Care Goal (LTG) Improve Oswestry score to no greater than 10% as measure of improved function and quality of life. LTG Duration 02/02/24 One Impairment lumbar spine pain which increases with standing and walking as high as 8/10 Short Term Goal (STG) Patient will be able to stand for at least 10 min without an increase in pain STG Duration 12/16/23 Senior Care Goal (LTG) Patient will be able to walk at least 1 mile without an increase in pain LTG Duration 02/02/24 Assessment Summary Assessment Patient reports he feels a little looser end of session. Physical Therapy Plan Frequency and Duration Frequency of Treatment 2x/Week Duration of treatment (weeks) 12 Plan of Care Start Date 11/02/23 Plan of Care End Date 02/02/24 Next Visit Focus/Plan Next Note Type Treatment Note Next Visit Plan mini squat to HEP/trial. Consider use of [facility]. Continue core stabilization, strengthening, and flexibility.
--- NOTE | 2023-12-01 10:04 | PT.OTN ---
Current Diagnoses Other chronic pain (12/01/23) Low back pain, unspecified (12/01/23) Other symptoms and signs involving the musculoskeletal system (12/01/23) Physical Therapy Treatment Note PT-OP-A Visit Information Start: 11/01/23 16:45 Freq: Status: Active Protocol: Document 12/01/23 08:11 AB (Rec: 12/01/23 10:03 AB [id number]) Out-Patient Physical Therapy Visit Information Visit Information Visit Type Treatment Note Visit Note Access Code: [email or web address] Visit Start Time 09:03 Visit Stop Time 09:52 Visit Number 7 Number of DNA ANALYST Visits 2 Evaluation Information Evaluation Date 11/02/23 Precautions Precautions legs give way occasionally, unpredictable PT-OP-B Current Condition Start: 11/01/23 16:45 Freq: Status: Active Protocol: Document 11/24/23 14:30 [facility] (Rec: 11/24/23 15:37 [facility] [id number]) Current Condition History of Current Condition Onset Date 2-3 years Current Complaints LBP History of Current Condition 2-3 yr history LBP gradual onset. Has had cortisone shot with min relief. Saw orthopedist. MRI showed stenosis. Takes anti- inflammatory. Activity level used to be run 3-5 miles per day, now walking just down to his boat and back to car. Pain increases with prolonged standing. HIstory paramjit XAVIER at [facility] 2014 and 2016 with good recovery. No other exercises besides walking but that is limited. Open to PT suggestion for aquatic exercises. Has trekking poles. Denies N/T, but reports burning in low back. States legs occasionally gives way, unpredictable. Walking up an incline much easier than down. Reports his left arch collapsed several years ago, he has orthotic, brace, and uses trekking pole or poles for balance and stability. Prior Treatments and Tests MRI: stenosis. Future Testing and Treatments Planned nothing planned PT-OP-C Subjective Start: 11/01/23 16:45 Freq: Status: Active Protocol: Document 12/01/23 08:11 AB (Rec: 12/01/23 10:03 AB [id number]) OP-PT Subjective Patient Comments Patient Comments Patient reports standing for even a few minutes causes burning in back and increased difficulty walking. Patient into session with SPC. PT-OP-J Posture/Palpation/Skin Start: 07/16/24 16:45 Freq: Status: Active Protocol: Document 11/02/23 13:00 [facility] (Rec: 11/02/23 13:53 [facility] [id number]) Posture Evaluation Position Standing Head/C-Spine Posture Forward Head T-Spine Posture Increased Kyphosis L-Spine Posture Increased Lordosis Shoulder Posture (L) Elevated Arm Posture (L) Internally Rotated,(R) Internally Rotated Pelvis Posture Anteriorly Tilted Weight Distribution Weight Shifted Right Knee Posture (L) Genu Valgus Ankle/Foot Posture (L) Pronated Palpation Assessment Location lumbar spine Palpation Findings Muscle Guarding PT-OP-K Range of Motion Start: 11/01/23 16:45 Freq: Status: Active Protocol: Document 11/02/23 13:00 [facility] (Rec: 11/02/23 13:53 [facility] [id number]) Lumbar Spine Range of Motion Lumbar Spine Active Flexion 40 Extension 0 Rotation Left 10 Rotation Right 15 Lateral Flexion Left 20 Lateral Flexion Right 20 ROM Limitations Bony Restriction Hip Goniometric Range of Motion Hip paramjit Comments SLR R 50, L 55 Hip ROM Limitations Hip ROM Limitations Soft Tissue Tightness PT-OP-M Strength Start: 11/01/23 16:45 Freq: Status: Active Protocol: Document 11/02/23 13:00 [facility] (Rec: 11/02/23 13:53 [facility] [id number]) Trunk Strength Trunk Manual Muscle Testing Flexion 3+ Fair+ Extension 4- Good- Hip Strength Hip Manual Muscle Testing Left Flexion (L2) 4+ Good+ Extension (S1) 3+ Fair+ Abduction 3+ Fair+ External Rotation 4- Good- Internal Rotation 4 Good Right Flexion (L2) 4+ Good+ Extension (S1) 4- Good- Abduction 4- Good- Adduction 4- Good- External Rotation 4 Good Internal Rotation 4 Good Knee Strength Knee Manual Muscle Testing paramjit Flexion (S2) 4+ Good+ Extension (L3) 4+ Good+ Ankle/Foot Strength Ankle and Foot Manual Muscle Testing paramjit Dorsiflexion (L4) 4 Good Plantarflexion (S1) 4 Good PT-OP-Q Treatments Start: 11/01/23 16:45 Freq: Status: Active Protocol: Document 12/01/23 08:11 AB (Rec: 12/01/23 10:03 AB [id number]) Therapeutic Exercises Supine Exercises bent knee fall out Side bilateral Reps/Minutes X10 Comments Verbal cues to brace as LE moves away from core abdominal bracing with LE extension Side bilateral Reps/Minutes X10 Comments verbal cues modified restorative pose with breathing from diaphgragm Side bilateral Comments verbal cues and self tactile cues for breathing from diaphragm Edison stretch Side bilateral Reps/Minutes 2x 60 each LE Comments with AROM knee flexion piriformis stretch Side bilateral Reps/Minutes 2x60 Standing Exercises hip ext Standing Exercise Name resting on bolster and 2 pillows on plinth Side bilateral Reps/Minutes X10 Comments with abdominal bracing Gait Training Gait Activity SPC and stairs Description 4 six inch stairs with SPC and rail and 2 rails Distance/Duration X3 trials Comments SPC adjusted for height. Verbal cues for UE/cane placement, patient ed rationale of UE position for safety and decreased force on knees when descending stairs. Manual Therapy Treatment Soft Tissue Mobilization bilateral glute/piriformis\ Mobilization Type Cross-Friction,Rolling Intensity/Depth Moderate Body Position Sidelying Comments prior to stretch bilateral hip flexors Mobilization Type Cross-Friction,Rolling Intensity/Depth Moderate Body Position Hooklying Comments prior to stretch Manual Techniques contract relax Type bilateral piriformis X3 Body Position Hooklying Reps/Duration X3 PT-OP-T Assessment and Plan Start: 11/01/23 16:45 Freq: Status: Active Protocol: Document 12/01/23 08:11 AB (Rec: 12/01/23 10:03 AB [id number]) Physical Therapy Assessment Goals Three Impairment impairments in flexibility and strength Short Term Goal (STG) Patient to be instructed in individualized and progressive HEP for purposes of improving flexibility and strength in hips and core STG Duration 12/16/23 General Farmworker Goal (LTG) Patient to be independent and compliant with HEP and demonstrate improvedments in flexibility to WNL and strength to at least 4+/5 all muscle groups in hips and core for improved spinal support and function LTG Duration 02/02/24 Two Impairment Oswestry disability index score 22% Short Term Goal (STG) Improve Oswestry score to no greater than 15% as measure of improved function STG Duration 12/16/23 General Farmworker Goal (LTG) Improve Oswestry score to no greater than 10% as measure of improved function and quality of life. LTG Duration 02/02/24 One Impairment lumbar spine pain which increases with standing and walking as high as 8/10 Short Term Goal (STG) Patient will be able to stand for at least 10 min without an increase in pain STG Duration 12/16/23 Correction Goal (LTG) Patient will be able to walk at least 1 mile without an increase in pain LTG Duration 02/02/24 Assessment Summary Assessment Patient reports feeling fine ed of session. Patient able to descend stairs with a less quad dominant pattern, UE's in correct position on rail/cane with correct placement. Physical Therapy Plan Frequency and Duration Frequency of Treatment 2x/Week Duration of treatment (weeks) 12 Plan of Care Start Date 11/02/23 Plan of Care End Date 02/02/24 Next Visit Focus/Plan Next Note Type Treatment Note Next Visit Plan mini squat to HEP/trial. Consider use of [facility]. Continue core stabilization, strengthening, and flexibility.
--- NOTE | 2023-12-08 16:00 | PT.OTN ---
Current Diagnoses Other chronic pain (12/08/23) Low back pain, unspecified (12/08/23) Other symptoms and signs involving the musculoskeletal system (12/08/23) Physical Therapy Treatment Note PT-OP-A Visit Information Start: 11/01/23 16:45 Freq: Status: Active Protocol: Document 12/08/23 14:30 SAK (Rec: 12/08/23 15:19 [facility] [id number]) Out-Patient Physical Therapy Visit Information Visit Information Visit Type Treatment Note Visit Start Time 14:31 Visit Stop Time 14:25 Visit Number 8 Number of PHARMACY DIRECTOR Visits 0 Precautions Precautions legs give way occasionally, unpredictable PT-OP-B Current Condition Start: 11/01/23 16:45 Freq: Status: Active Protocol: Document 11/24/23 14:30 SAK (Rec: 11/24/23 15:37 [facility] [id number]) Current Condition History of Current Condition Onset Date 2-3 years Current Complaints LBP History of Current Condition 2-3 yr history LBP gradual onset. Has had cortisone shot with min relief. Saw orthopedist. MRI showed stenosis. Takes anti- inflammatory. Activity level used to be run 3-5 miles per day, now walking just down to his boat and back to car. Pain increases with prolonged standing. HIstory paramjit XAVIER at [facility] 2014 and 2017 with good recovery. No other exercises besides walking but that is limited. Open to PT suggestion for aquatic exercises. Has trekking poles. Denies N/T, but reports burning in low back. States legs occasionally gives way, unpredictable. Walking up an incline much easier than down. Reports his left arch collapsed several years ago, he has orthotic, brace, and uses trekking pole or poles for balance and stability. Prior Treatments and Tests MRI: stenosis. Future Testing and Treatments Planned nothing planned PT-OP-C Subjective Start: 11/01/23 16:45 Freq: Status: Active Protocol: Document 12/08/23 14:30 SAK (Rec: 12/08/23 15:19 [facility] [id number]) OP-PT Subjective Patient Comments Patient Comments Day after last session felt better, thinks manual treatment helpful last session for about a day. PT-OP-J Posture/Palpation/Skin Start: 11/01/23 16:45 Freq: Status: Active Protocol: Document 11/02/23 13:00 SAK (Rec: 11/02/23 13:53 SAK [id number]) Posture Evaluation Position Standing Head/C-Spine Posture Forward Head T-Spine Posture Increased Kyphosis L-Spine Posture Increased Lordosis Shoulder Posture (L) Elevated Arm Posture (L) Internally Rotated,(R) Internally Rotated Pelvis Posture Anteriorly Tilted Weight Distribution Weight Shifted Right Knee Posture (L) Genu Valgus Ankle/Foot Posture (L) Pronated Palpation Assessment Location lumbar spine Palpation Findings Muscle Guarding PT-OP-K Range of Motion Start: 11/01/23 16:45 Freq: Status: Active Protocol: Document 11/02/23 13:00 [facility] (Rec: 11/02/23 13:53 [facility] [id number]) Lumbar Spine Range of Motion Lumbar Spine Active Flexion 40 Extension 0 Rotation Left 10 Rotation Right 15 Lateral Flexion Left 20 Lateral Flexion Right 20 ROM Limitations Bony Restriction Hip Goniometric Range of Motion Hip paramjit Comments SLR R 50, L 55 Hip ROM Limitations Hip ROM Limitations Soft Tissue Tightness PT-OP-M Strength Start: 11/01/23 16:45 Freq: Status: Active Protocol: Document 11/02/23 13:00 [facility] (Rec: 11/02/23 13:53 [facility] [id number]) Trunk Strength Trunk Manual Muscle Testing Flexion 3+ Fair+ Extension 4- Good- Hip Strength Hip Manual Muscle Testing Left Flexion (L2) 4+ Good+ Extension (S1) 3+ Fair+ Abduction 3+ Fair+ External Rotation 4- Good- Internal Rotation 4 Good Right Flexion (L2) 4+ Good+ Extension (S1) 4- Good- Abduction 4- Good- Adduction 4- Good- External Rotation 4 Good Internal Rotation 4 Good Knee Strength Knee Manual Muscle Testing paramjit Flexion (S2) 4+ Good+ Extension (L3) 4+ Good+ Ankle/Foot Strength Ankle and Foot Manual Muscle Testing paramjit Dorsiflexion (L4) 4 Good Plantarflexion (S1) 4 Good PT-OP-Q Treatments Start: 11/01/23 16:45 Freq: Status: Active Protocol: Document 12/08/23 14:30 [facility] (Rec: 12/08/23 15:19 [facility] [id number]) Cardio Equipment Recumbent Stepper (Sci-Fit) Duration (Minutes) 10 Resistance 4 Seat Position 17 Other legs only last 5 minute Therapeutic Exercises Supine Exercises bridge Reps/Minutes 10x bent knee fall out Side bilateral Reps/Minutes X10 Comments Verbal cues to brace as LE moves away from core abdominal bracing with LE extension Side bilateral Reps/Minutes X10 Comments verbal cues quad stretch Reps/Minutes 2x 30 Comments manual Edison stretch Side bilateral Reps/Minutes 2x 60 each LE Comments with AROM knee flexion piriformis stretch Side bilateral Reps/Minutes 2x60 pelvic tilt Reps/Minutes 5x Sidelying Exercises hip ab Reps/Minutes 10x Comments cues for fully laying on side, not letting top leg go forward Sitting Exercises piriformis Reps/Minutes 2x30 figure 4 Reps/Minutes 2x30 Standing Exercises hip ext Standing Exercise Name resting on bolster and 2 pillows on plinth Side bilateral Reps/Minutes X10 Comments with abdominal bracing Manual Therapy Treatment Soft Tissue Mobilization bilateral glute/piriformis\ Mobilization Type Cross-Friction,Rolling Intensity/Depth Moderate Body Position Sidelying Comments prior to stretch bilateral hip flexors Mobilization Type Cross-Friction,Rolling Intensity/Depth Moderate Body Position Hooklying Comments prior to stretch Manual Techniques contract relax Type bilateral piriformis X3 Body Position Hooklying Reps/Duration X3 Self-Care/Home Management Treatment Education Patient Education Home Exercise Program,Pain Management,Posture Other Education updated HEP HO instructed in use of tennis ball for self massage and reviewed use of rolling pin. PT-OP-T Assessment and Plan Start: 11/01/23 16:45 Freq: Status: Active Protocol: Document 12/08/23 14:30 [facility] (Rec: 12/08/23 15:19 [facility] [id number]) Physical Therapy Assessment Goals Three Impairment impairments in flexibility and strength Short Term Goal (STG) Patient to be instructed in individualized and progressive HEP for purposes of improving flexibility and strength in hips and core STG Duration 12/16/23 Residential Goal (LTG) Patient to be independent and compliant with HEP and demonstrate improvedments in flexibility to WNL and strength to at least 4+/5 all muscle groups in hips and core for improved spinal support and function LTG Duration 02/02/24 Two Impairment Oswestry disability index score 22% Short Term Goal (STG) Improve Oswestry score to no greater than 15% as measure of improved function STG Duration 12/16/23 Custom Wood Stair Builder Goal (LTG) Improve Oswestry score to no greater than 10% as measure of improved function and quality of life. LTG Duration 02/02/24 One Impairment lumbar spine pain which increases with standing and walking as high as 810 Short Term Goal (STG) Patient will be able to stand for at least 10 min without an increase in pain STG Duration 12/16/23 Residential Goal (LTG) Patient will be able to walk at least 1 mile without an increase in pain LTG Duration 02/02/24 Assessment Summary Assessment Patient demonstrated good understanding of updated HEP, seated hip stretches to more easily work into his day, and use of rolling pin and tennis ball for self massage. Physical Therapy Plan Frequency and Duration Frequency of Treatment 2x/Week Duration of treatment (weeks) 12 Plan of Care Start Date 11/02/23 Plan of Care End Date 02/02/24 Next Visit Focus/Plan Next Note Type Treatment Note Next Visit Plan Further work on mini squat, hip hinging. bug, leg lowering.
--- NOTE | 2023-12-11 08:14 | PT.OTN ---
Current Diagnoses Other chronic pain (12/08/23) Low back pain, unspecified (12/08/23) Other symptoms and signs involving the musculoskeletal system (12/08/23) Physical Therapy Treatment Note PT-OP-A Visit Information Start: 11/01/23 16:45 Freq: Status: Active Protocol: Document 12/08/23 14:30 SAK (Rec: 12/08/23 15:19 [facility] [id number]) Out-Patient Physical Therapy Visit Information Visit Information Visit Type Treatment Note Visit Start Time 14:31 Visit Stop Time 14:25 Visit Number 8 Number of HOSPITALIST NOCTURNIST PHYSICIAN Visits 0 Precautions Precautions legs give way occasionally, unpredictable PT-OP-B Current Condition Start: 11/01/23 16:45 Freq: Status: Active Protocol: Document 11/24/23 14:30 SAK (Rec: 11/24/23 15:37 [facility] [id number]) Current Condition History of Current Condition Onset Date 2-3 years Current Complaints LBP History of Current Condition 2-3 yr history LBP gradual onset. Has had cortisone shot with min relief. Saw orthopedist. MRI showed stenosis. Takes anti- inflammatory. Activity level used to be run 3-5 miles per day, now walking just down to his boat and back to car. Pain increases with prolonged standing. HIstory paramjit XAVIER at [facility] 2014 and 2017 with good recovery. No other exercises besides walking but that is limited. Open to PT suggestion for aquatic exercises. Has trekking poles. Denies N/T, but reports burning in low back. States legs occasionally gives way, unpredictable. Walking up an incline much easier than down. Reports his left arch collapsed several years ago, he has orthotic, brace, and uses trekking pole or poles for balance and stability. Prior Treatments and Tests MRI: stenosis. Future Testing and Treatments Planned nothing planned PT-OP-C Subjective Start: 11/01/23 16:45 Freq: Status: Active Protocol: Document 12/08/23 14:30 SAK (Rec: 12/08/23 15:19 [facility] [id number]) OP-PT Subjective Patient Comments Patient Comments Day after last session felt better, thinks manual treatment helpful last session for about a day. PT-OP-J Posture/Palpation/Skin Start: 11/01/23 16:45 Freq: Status: Active Protocol: Document 11/02/23 13:00 SAK (Rec: 11/02/23 13:53 SAK [id number]) Posture Evaluation Position Standing Head/C-Spine Posture Forward Head T-Spine Posture Increased Kyphosis L-Spine Posture Increased Lordosis Shoulder Posture (L) Elevated Arm Posture (L) Internally Rotated,(R) Internally Rotated Pelvis Posture Anteriorly Tilted Weight Distribution Weight Shifted Right Knee Posture (L) Genu Valgus Ankle/Foot Posture (L) Pronated Palpation Assessment Location lumbar spine Palpation Findings Muscle Guarding PT-OP-K Range of Motion Start: 11/01/23 16:45 Freq: Status: Active Protocol: Document 11/02/23 13:00 [facility] (Rec: 11/02/23 13:53 [facility] [id number]) Lumbar Spine Range of Motion Lumbar Spine Active Flexion 40 Extension 0 Rotation Left 10 Rotation Right 15 Lateral Flexion Left 20 Lateral Flexion Right 20 ROM Limitations Bony Restriction Hip Goniometric Range of Motion Hip paramjit Comments SLR R 50, L 55 Hip ROM Limitations Hip ROM Limitations Soft Tissue Tightness PT-OP-M Strength Start: 11/01/23 16:45 Freq: Status: Active Protocol: Document 11/02/23 13:00 [facility] (Rec: 11/02/23 13:53 [facility] [id number]) Trunk Strength Trunk Manual Muscle Testing Flexion 3+ Fair+ Extension 4- Good- Hip Strength Hip Manual Muscle Testing Left Flexion (L2) 4+ Good+ Extension (S1) 3+ Fair+ Abduction 3+ Fair+ External Rotation 4- Good- Internal Rotation 4 Good Right Flexion (L2) 4+ Good+ Extension (S1) 4- Good- Abduction 4- Good- Adduction 4- Good- External Rotation 4 Good Internal Rotation 4 Good Knee Strength Knee Manual Muscle Testing paramjit Flexion (S2) 4+ Good+ Extension (L3) 4+ Good+ Ankle/Foot Strength Ankle and Foot Manual Muscle Testing paramjit Dorsiflexion (L4) 4 Good Plantarflexion (S1) 4 Good PT-OP-Q Treatments Start: 11/01/23 16:45 Freq: Status: Active Protocol: Document 12/08/23 14:30 [facility] (Rec: 12/08/23 15:19 [facility] [id number]) Cardio Equipment Recumbent Stepper (Sci-Fit) Duration (Minutes) 10 Resistance 4 Seat Position 17 Other legs only last 5 minute Therapeutic Exercises Supine Exercises bridge Reps/Minutes 10x bent knee fall out Side bilateral Reps/Minutes X10 Comments Verbal cues to brace as LE moves away from core abdominal bracing with LE extension Side bilateral Reps/Minutes X10 Comments verbal cues quad stretch Reps/Minutes 2x 30 Comments manual Edison stretch Side bilateral Reps/Minutes 2x 60 each LE Comments with AROM knee flexion piriformis stretch Side bilateral Reps/Minutes 2x60 pelvic tilt Reps/Minutes 5x Sidelying Exercises hip ab Reps/Minutes 10x Comments cues for fully laying on side, not letting top leg go forward Sitting Exercises piriformis Reps/Minutes 2x30 figure 4 Reps/Minutes 2x30 Standing Exercises hip ext Standing Exercise Name resting on bolster and 2 pillows on plinth Side bilateral Reps/Minutes X10 Comments with abdominal bracing Manual Therapy Treatment Soft Tissue Mobilization bilateral glute/piriformis\ Mobilization Type Cross-Friction,Rolling Intensity/Depth Moderate Body Position Sidelying Comments prior to stretch bilateral hip flexors Mobilization Type Cross-Friction,Rolling Intensity/Depth Moderate Body Position Hooklying Comments prior to stretch Manual Techniques contract relax Type bilateral piriformis X3 Body Position Hooklying Reps/Duration X3 Self-Care/Home Management Treatment Education Patient Education Home Exercise Program,Pain Management,Posture Other Education updated HEP HO instructed in use of tennis ball for self massage and reviewed use of rolling pin. PT-OP-T Assessment and Plan Start: 11/01/23 16:45 Freq: Status: Active Protocol: Document 12/08/23 14:30 [facility] (Rec: 12/08/23 15:19 [facility] [id number]) Physical Therapy Assessment Goals Three Impairment impairments in flexibility and strength Short Term Goal (STG) Patient to be instructed in individualized and progressive HEP for purposes of improving flexibility and strength in hips and core STG Duration 12/16/23 Fdc Goal (LTG) Patient to be independent and compliant with HEP and demonstrate improvedments in flexibility to WNL and strength to at least 4+/5 all muscle groups in hips and core for improved spinal support and function LTG Duration 02/02/24 Two Impairment Oswestry disability index score 22% Short Term Goal (STG) Improve Oswestry score to no greater than 15% as measure of improved function STG Duration 12/16/23 Radial Drill Operator For Plastic Goal (LTG) Improve Oswestry score to no greater than 10% as measure of improved function and quality of life. LTG Duration 02/02/24 One Impairment lumbar spine pain which increases with standing and walking as high as 810 Short Term Goal (STG) Patient will be able to stand for at least 10 min without an increase in pain STG Duration 12/16/23 Fdc Goal (LTG) Patient will be able to walk at least 1 mile without an increase in pain LTG Duration 02/02/24 Assessment Summary Assessment Patient demonstrated good understanding of updated HEP, seated hip stretches to more easily work into his day, and use of rolling pin and tennis ball for self massage. Physical Therapy Plan Frequency and Duration Frequency of Treatment 2x/Week Duration of treatment (weeks) 12 Plan of Care Start Date 11/02/23 Plan of Care End Date 02/02/24 Next Visit Focus/Plan Next Note Type Treatment Note Next Visit Plan Further work on mini squat, hip hinging. bug, leg lowering.
--- NOTE | 2023-12-15 15:48 | PT.OTN ---
Current Diagnoses Other chronic pain (12/15/23) Low back pain, unspecified (12/15/23) Other symptoms and signs involving the musculoskeletal system (12/15/23) Physical Therapy Treatment Note PT-OP-A Visit Information Start: 11/01/23 16:45 Freq: Status: Active Protocol: Document 12/15/23 14:29 SAK (Rec: 12/15/23 15:46 [facility] [id number]) Out-Patient Physical Therapy Visit Information Visit Information Visit Type Treatment Note Visit Start Time 14:30 Visit Number 9 Precautions Precautions legs give way occasionally, unpredictable PT-OP-B Current Condition Start: 11/01/23 16:45 Freq: Status: Active Protocol: Document 11/24/23 14:30 SAK (Rec: 11/24/23 15:37 [facility] [id number]) Current Condition History of Current Condition Onset Date 2-3 years Current Complaints LBP History of Current Condition 2-3 yr history LBP gradual onset. Has had cortisone shot with min relief. Saw orthopedist. MRI showed stenosis. Takes anti- inflammatory. Activity level used to be run 3-5 miles per day, now walking just down to his boat and back to car. Pain increases with prolonged standing. HIstory paramjit XAVIER at [facility] 2014 and 2016 with good recovery. No other exercises besides walking but that is limited. Open to PT suggestion for aquatic exercises. Has trekking poles. Denies N/T, but reports burning in low back. States legs occasionally gives way, unpredictable. Walking up an incline much easier than down. Reports his left arch collapsed several years ago, he has orthotic, brace, and uses trekking pole or poles for balance and stability. Prior Treatments and Tests MRI: stenosis. Future Testing and Treatments Planned nothing planned PT-OP-C Subjective Start: 11/01/23 16:45 Freq: Status: Active Protocol: Document 12/15/23 14:29 SAK (Rec: 12/15/23 15:48 [facility] [id number]) OP-PT Subjective Patient Comments Patient Comments Fair compliance to HEP, doesn' t always remember. Biggest complaint is limited standing tolerance. Asking if PT thinks he should use 2 instead of 1 trekking pole and agreed to try 2 per PT recommendation. PT-OP-J Posture/Palpation/Skin Start: 11/01/23 16:45 Freq: Status: Active Protocol: Document 11/02/23 13:00 [facility] (Rec: 11/02/23 13:53 [facility] [id number]) Posture Evaluation Position Standing Head/C-Spine Posture Forward Head T-Spine Posture Increased Kyphosis L-Spine Posture Increased Lordosis Shoulder Posture (L) Elevated Arm Posture (L) Internally Rotated,(R) Internally Rotated Pelvis Posture Anteriorly Tilted Weight Distribution Weight Shifted Right Knee Posture (L) Genu Valgus Ankle/Foot Posture (L) Pronated Palpation Assessment Location lumbar spine Palpation Findings Muscle Guarding PT-OP-K Range of Motion Start: 11/01/23 16:45 Freq: Status: Active Protocol: Document 11/02/23 13:00 [facility] (Rec: 11/02/23 13:53 [facility] [id number]) Lumbar Spine Range of Motion Lumbar Spine Active Flexion 40 Extension 0 Rotation Left 10 Rotation Right 15 Lateral Flexion Left 20 Lateral Flexion Right 20 ROM Limitations Bony Restriction Hip Goniometric Range of Motion Hip paramjit Comments SLR R 50, L 55 Hip ROM Limitations Hip ROM Limitations Soft Tissue Tightness PT-OP-M Strength Start: 11/01/23 16:45 Freq: Status: Active Protocol: Document 11/02/23 13:00 [facility] (Rec: 11/02/23 13:53 [facility] [id number]) Trunk Strength Trunk Manual Muscle Testing Flexion 3+ Fair+ Extension 4- Good- Hip Strength Hip Manual Muscle Testing Left Flexion (L2) 4+ Good+ Extension (S1) 3+ Fair+ Abduction 3+ Fair+ External Rotation 4- Good- Internal Rotation 4 Good Right Flexion (L2) 4+ Good+ Extension (S1) 4- Good- Abduction 4- Good- Adduction 4- Good- External Rotation 4 Good Internal Rotation 4 Good Knee Strength Knee Manual Muscle Testing paramjit Flexion (S2) 4+ Good+ Extension (L3) 4+ Good+ Ankle/Foot Strength Ankle and Foot Manual Muscle Testing paramjit Dorsiflexion (L4) 4 Good Plantarflexion (S1) 4 Good PT-OP-Q Treatments Start: 11/01/23 16:45 Freq: Status: Active Protocol: Document 12/15/23 14:29 [facility] (Rec: 12/15/23 15:46 [facility] [id number]) Cardio Equipment Recumbent Stepper (Sci-Fit) Duration (Minutes) 5 Resistance 4 Seat Position 17 Other 0.78 miles Gym Equipment Shuttle Recovery Unilateral Squats Details tactile cue feet //, knee abd midline L Resistance 37 Shuttle Recovery Platform Stable Reps/Time x15- paramjit Bilateral Squats Details tactile cue feet //, knee abd midline L Resistance 75 (3 navy) Shuttle Recovery Platform Stable Reps/Time x20 Sport Cord cord green Exercise Details fwd x 5, side x 3 ea Cord/Resistance green Therapeutic Exercises Supine Exercises bicycle Reps/Minutes 10x Comments small movement, cues for core overhead weight lowering Resistance 5# Reps/Minutes 10x2 HS stretch Supine Exercise Name hands behind thigh, active stretch Side bilateral Reps/Minutes 60 seconds X 2 with AROM knee X10 Sidelying Exercises clam Reps/Minutes 12x Comments cues for core activation and alignment hip ab Reps/Minutes 10x Comments cues for fully laying on side, not letting top leg go forward Standing Exercises KTC Standing Exercise Name foot on step Reps/Minutes 2x pelvic tilt Reps/Minutes 3x5 Comments cues to do during prolonged standing chair squat Standing Exercise Name sit to stand Equipment Used L2 TB, mirror Reps/Minutes 10x Comments cues for neutral LE alignment PT-OP-T Assessment and Plan Start: 11/01/23 16:45 Freq: Status: Active Protocol: Document 12/15/23 14:29 [facility] (Rec: 12/15/23 15:46 [facility] [id number]) Physical Therapy Assessment Goals Three Impairment impairments in flexibility and strength Short Term Goal (STG) Patient to be instructed in individualized and progressive HEP for purposes of improving flexibility and strength in hips and core 12/16/23: good goal progress, ongoing progression STG Duration 12/16/23 Jail Goal (LTG) Patient to be independent and compliant with HEP and demonstrate improvedments in flexibility to WNL and strength to at least 4+/5 all muscle groups in hips and core for improved spinal support and function LTG Duration 02/02/24 Two Impairment Oswestry disability index score 22% Short Term Goal (STG) Improve Oswestry score to no greater than 15% as measure of improved function 12/16/23: goal progress, dec to 19% STG Duration 12/16/23 Jail Goal (LTG) Improve Oswestry score to no greater than 10% as measure of improved function and quality of life. LTG Duration 02/02/24 One Impairment lumbar spine pain which increases with standing and walking as high as 8/10 Short Term Goal (STG) Patient will be able to stand for at least 10 min without an increase in pain 12/16/23: goal met STG Duration 12/16/23 Zone Maintenance Technician Goal (LTG) Patient will be able to walk at least 1 mile without an increase in pain LTG Duration 02/02/24 Progress Towards Goals Progress Towards Goals Progressing Toward Goals Assessment Summary Assessment needed moderate cues for hip abduction and clam. Trial supine small bicycle, pullover with 5# with emphasis on core stab. Also discussed benefits of using 2 trekking poles, as well as doing standing pelvic tilt and if possible put foot onto bench or other object for standing KTC stretch if doing prolonged standing. Patient demonstrated good understanding. Physical Therapy Plan Frequency and Duration Frequency of Treatment 2x/Week Duration of treatment (weeks) 12 Plan of Care Start Date 11/02/23 Plan of Care End Date 02/02/24 Next Visit Focus/Plan Next Visit Plan Review supine pullover, bicycle, try bug, standing counter stretch.
--- NOTE | 2023-12-21 13:44 | PT.OTN ---
Current Diagnoses Other chronic pain (12/21/23) Low back pain, unspecified (12/21/23) Other symptoms and signs involving the musculoskeletal system (12/21/23) Physical Therapy Treatment Note PT-OP-A Visit Information Start: 11/01/23 16:45 Freq: Status: Active Protocol: Document 12/21/23 13:04 SP (Rec: 12/21/23 14:20 SP [id number]) Out-Patient Physical Therapy Visit Information Visit Information Visit Type Treatment Note Visit Note 05/28 post PN Visit Start Time 13:04 Visit Stop Time 13:44 Visit Number 10 Number of GLOVE EXAMINER Visits 1 Evaluation Information Evaluation Date 11/02/23 Precautions Precautions legs give way occasionally, unpredictable PT-OP-B Current Condition Start: 11/01/23 16:45 Freq: Status: Active Protocol: Document 11/24/23 14:30 SAK (Rec: 11/24/23 15:37 SAK [id number]) Current Condition History of Current Condition Onset Date 2-3 years Current Complaints LBP History of Current Condition 2-3 yr history LBP gradual onset. Has had cortisone shot with min relief. Saw orthopedist. MRI showed stenosis. Takes anti- inflammatory. Activity level used to be run 3-5 miles per day, now walking just down to his boat and back to car. Pain increases with prolonged standing. HIstory paramjit XAVIER at [facility] 2014 and 2016 with good recovery. No other exercises besides walking but that is limited. Open to PT suggestion for aquatic exercises. Has trekking poles. Denies N/T, but reports burning in low back. States legs occasionally gives way, unpredictable. Walking up an incline much easier than down. Reports his left arch collapsed several years ago, he has orthotic, brace, and uses trekking pole or poles for balance and stability. Prior Treatments and Tests MRI: stenosis. Future Testing and Treatments Planned nothing planned PT-OP-C Subjective Start: 11/01/23 16:45 Freq: Status: Active Protocol: Document 12/21/23 13:04 SP (Rec: 12/21/23 14:20 SP [id number]) OP-PT Subjective Patient Comments Patient Comments Pt reports was little sore after last tx, focused on the back. PT-OP-J Posture/Palpation/Skin Start: 11/01/23 16:45 Freq: Status: Active Protocol: Document 11/02/23 13:00 SAK (Rec: 11/02/23 13:[address] [facility] [id number]) Posture Evaluation Position Standing Head/C-Spine Posture Forward Head T-Spine Posture Increased Kyphosis L-Spine Posture Increased Lordosis Shoulder Posture (L) Elevated Arm Posture (L) Internally Rotated,(R) Internally Rotated Pelvis Posture Anteriorly Tilted Weight Distribution Weight Shifted Right Knee Posture (L) Genu Valgus Ankle/Foot Posture (L) Pronated Palpation Assessment Location lumbar spine Palpation Findings Muscle Guarding PT-OP-K Range of Motion Start: 11/01/23 16:45 Freq: Status: Active Protocol: Document 11/02/23 13:[address] [facility] (Rec: 11/02/23 13:[address] [facility] [id number]) Lumbar Spine Range of Motion Lumbar Spine Active Flexion 40 Extension 0 Rotation Left 10 Rotation Right 15 Lateral Flexion Left 20 Lateral Flexion Right 20 ROM Limitations Bony Restriction Hip Goniometric Range of Motion Hip paramjit Comments SLR R 50, L 55 Hip ROM Limitations Hip ROM Limitations Soft Tissue Tightness PT-OP-M Strength Start: 11/01/23 16:45 Freq: Status: Active Protocol: Document 11/02/23 13:[address] [facility] (Rec: 11/02/23 13:[address] [facility] [id number]) Trunk Strength Trunk Manual Muscle Testing Flexion 3+ Fair+ Extension 4- Good- Hip Strength Hip Manual Muscle Testing Left Flexion (L2) 4+ Good+ Extension (S1) 3+ Fair+ Abduction 3+ Fair+ External Rotation 4- Good- Internal Rotation 4 Good Right Flexion (L2) 4+ Good+ Extension (S1) 4- Good- Abduction 4- Good- Adduction 4- Good- External Rotation 4 Good Internal Rotation 4 Good Knee Strength Knee Manual Muscle Testing paramjit Flexion (S2) 4+ Good+ Extension (L3) 4+ Good+ Ankle/Foot Strength Ankle and Foot Manual Muscle Testing paramjit Dorsiflexion (L4) 4 Good Plantarflexion (S1) 4 Good PT-OP-Q Treatments Start: 11/01/23 16:45 Freq: Status: Active Protocol: Document 12/21/23 13:04 SP (Rec: 12/21/23 14:20 SP [id number]) Cardio Equipment Recumbent Stepper (Sci-Fit) Duration (Minutes) 5 Resistance 4 Seat Position 17 Other 0.89 miles Gym Equipment Shuttle Recovery Unilateral Squats Details tactile cue feet //, knee abd midline L Resistance 27#>50# (2 navy) Shuttle Recovery Platform Stable Reps/Time [id number] LE Bilateral Squats Details tactile cue feet //, knee abd midline L Resistance 75>87# (3 navy) Shuttle Recovery Platform Stable Reps/Time x15 Sport Cord cord green Exercise Details fwd, bwd, side; step ups 4> 6 Cord/Resistance green (red next tx) Reps/Duration 5 reps each LE and surface Therapeutic Exercises Standing Exercises TA step ups Standing Exercise Name step ups/back down- added to HEP declined HO Side bilateral Equipment Used light rail support Reps/Minutes 5 reps each LE Comments cued tall over glut drive and TA less UE support paleoff press Standing Exercise Name 1. press out 2. Rotation (arms front) Side bilateral Resistance level 3 band Reps/Minutes 1. 15 press out 2. 5 rotation Comments monitored for pain range chair squat Standing Exercise Name sit to stand Resistance L2 TB Equipment Used elevated table 21 no UE, 20 need 1 min UE Reps/Minutes 10x, 5 reps Comments cues hip hinge asc/slower descend- improved eccentric land sit PT-OP-T Assessment and Plan Start: 11/01/23 16:45 Freq: Status: Active Protocol: Document 12/21/23 13:04 SP (Rec: 12/21/23 14:20 SP [id number]) Physical Therapy Assessment Goals Three Impairment impairments in flexibility and strength Short Term Goal (STG) Patient to be instructed in individualized and progressive HEP for purposes of improving flexibility and strength in hips and core 12/16/23: good goal progress, ongoing progression STG Duration 12/16/23 Assisted Goal (LTG) Patient to be independent and compliant with HEP and demonstrate improvedments in flexibility to WNL and strength to at least 4+/5 all muscle groups in hips and core for improved spinal support and function LTG Duration 02/02/24 Two Impairment Oswestry disability index score 22% Short Term Goal (STG) Improve Oswestry score to no greater than 15% as measure of improved function 12/16/23: goal progress, dec to 19% STG Duration 12/16/23 Assisted Goal (LTG) Improve Oswestry score to no greater than 10% as measure of improved function and quality of life. LTG Duration 02/02/24 One Impairment lumbar spine pain which increases with standing and walking as high as 8/10 Short Term Goal (STG) Patient will be able to stand for at least 10 min without an increase in pain 12/16/23: goal met STG Duration 12/16/23 Assisted Goal (LTG) Patient will be able to walk at least 1 mile without an increase in pain LTG Duration 02/02/24 Assessment Summary Assessment Pt improved eccentric resisted walking (sport cord) without use of SPC, was able to initiate with good tolerance resisted step ups very light trek pole contact for stability with no LOB, occasional cues for patterning . Instructed carryover step ups on bottom step for self progression carry over home, cues for TA and tall posture over advanced LE improved less 1 to light touch to complete . Pt required increased height of chair surface to progress LE strength and core progression with least amt UE supoprt, BLAYNE to allow ease sit and standing form community chair with more confidence. Physical Therapy Plan Frequency and Duration Frequency of Treatment 2x/Week Duration of treatment (weeks) 12 Plan of Care Start Date 11/02/23 Plan of Care End Date 02/02/24 Therapeutic Interventions Therapeutic Interventions Gait Training,Home Exercise Program,Manual Therapy, Neuromuscular Re-education, Orthotic/Prosthetic Management ,Patient/Caregiver Education, Self-Care/Home Management,Soft Tissue Mobilization,Taping, Therapeutic Activities, Therapeutic Exercises Modalities Cold Pack/Ice Massage,Electric Stimulation,Hot Packs, Traction- Mechanical, Ultrasound Next Visit Focus/Plan Next Note Type Treatment Note Next Visit Plan Recheck HEP: added TA step ups , paloff press& rotation, continue Review supine pullover, bicycle, try bug, standing counter stretch.
--- NOTE | 2023-12-30 13:46 | PT.OTN ---
Current Diagnoses Other chronic pain (12/30/23) Low back pain, unspecified (12/30/23) Other symptoms and signs involving the musculoskeletal system (12/30/23) Physical Therapy Treatment Note PT-OP-A Visit Information Start: 11/01/23 16:45 Freq: Status: Active Protocol: Document 12/30/23 13:01 SP (Rec: 12/30/23 14:02 SP [id number]) Out-Patient Physical Therapy Visit Information Visit Information Visit Type Treatment Note Visit Note 06/25 post PN Pt going out of town / Visit Start Time 13:01 Visit Stop Time 13:46 Visit Number 11 Number of DIRECTOR OF PHARMACY Visits 2 Evaluation Information Evaluation Date 11/02/23 Precautions Precautions legs give way occasionally, unpredictable PT-OP-B Current Condition Start: 11/01/23 16:45 Freq: Status: Active Protocol: Document 11/24/23 14:30 SAK (Rec: 11/24/23 15:37 SAK [id number]) Current Condition History of Current Condition Onset Date 2-3 years Current Complaints LBP History of Current Condition 2-3 yr history LBP gradual onset. Has had cortisone shot with min relief. Saw orthopedist. MRI showed stenosis. Takes anti- inflammatory. Activity level used to be run 3-5 miles per day, now walking just down to his boat and back to car. Pain increases with prolonged standing. HIstory paramjit XAVIER at [facility] 2014 and 2016 with good recovery. No other exercises besides walking but that is limited. Open to PT suggestion for aquatic exercises. Has trekking poles. Denies N/T, but reports burning in low back. States legs occasionally gives way, unpredictable. Walking up an incline much easier than down. Reports his left arch collapsed several years ago, he has orthotic, brace, and uses trekking pole or poles for balance and stability. Prior Treatments and Tests MRI: stenosis. Future Testing and Treatments Planned nothing planned PT-OP-C Subjective Start: 11/01/23 16:45 Freq: Status: Active Protocol: Document 12/30/23 13:01 SP (Rec: 12/30/23 14:02 SP [id number]) OP-PT Subjective Patient Comments Patient Comments Pt reports has been feeling pretty good, is able to stand still and carry on a longer conversation before having to move to give relief to back. Still sitting for to long is still uncomfortable. Pt reports compliant with HEP. PT-OP-J Posture/Palpation/Skin Start: 11/01/23 16:45 Freq: Status: Active Protocol: Document 11/02/23 13:00 [facility] (Rec: 11/02/23 13:53 [facility] [id number]) Posture Evaluation Position Standing Head/C-Spine Posture Forward Head T-Spine Posture Increased Kyphosis L-Spine Posture Increased Lordosis Shoulder Posture (L) Elevated Arm Posture (L) Internally Rotated,(R) Internally Rotated Pelvis Posture Anteriorly Tilted Weight Distribution Weight Shifted Right Knee Posture (L) Genu Valgus Ankle/Foot Posture (L) Pronated Palpation Assessment Location lumbar spine Palpation Findings Muscle Guarding PT-OP-K Range of Motion Start: 11/01/23 16:45 Freq: Status: Active Protocol: Document 11/02/23 13:00 SAK (Rec: 11/02/23 13:53 [facility] [id number]) Lumbar Spine Range of Motion Lumbar Spine Active Flexion 40 Extension 0 Rotation Left 10 Rotation Right 15 Lateral Flexion Left 20 Lateral Flexion Right 20 ROM Limitations Bony Restriction Hip Goniometric Range of Motion Hip paramjit Comments SLR R 50, L 55 Hip ROM Limitations Hip ROM Limitations Soft Tissue Tightness PT-OP-M Strength Start: 11/01/23 16:45 Freq: Status: Active Protocol: Document 11/02/23 13:00 [facility] (Rec: 11/02/23 13:53 [facility] [id number]) Trunk Strength Trunk Manual Muscle Testing Flexion 3+ Fair+ Extension 4- Good- Hip Strength Hip Manual Muscle Testing Left Flexion (L2) 4+ Good+ Extension (S1) 3+ Fair+ Abduction 3+ Fair+ External Rotation 4- Good- Internal Rotation 4 Good Right Flexion (L2) 4+ Good+ Extension (S1) 4- Good- Abduction 4- Good- Adduction 4- Good- External Rotation 4 Good Internal Rotation 4 Good Knee Strength Knee Manual Muscle Testing paramjit Flexion (S2) 4+ Good+ Extension (L3) 4+ Good+ Ankle/Foot Strength Ankle and Foot Manual Muscle Testing paramjit Dorsiflexion (L4) 4 Good Plantarflexion (S1) 4 Good PT-OP-Q Treatments Start: 11/01/23 16:45 Freq: Status: Active Protocol: Document 12/30/23 13:01 SP (Rec: 12/30/23 14:02 SP [id number]) Cardio Equipment Recumbent Elliptical (Biodex) Duration (Minutes) 6 Resistance 6 Seat Position 14 Other LE only Gym Equipment Shuttle Recovery Unilateral Squats Details tactile cue feet //, knee abd midline L Resistance 50# (2 navy) Shuttle Recovery Platform Stable Reps/Time [id number] LE Bilateral Squats Details tactile cue feet //, knee abd midline L Resistance 87# (3 navy) Next increase 100 # Shuttle Recovery Platform Stable Reps/Time x20 Shuttle Balance chains red Details WBOS, Stride Stance, Lateral Comments wt shift stationary HTs- challenging Min /c cues for directioning corrections Sport Cord cord green Exercise Details fwd, bwd, side R and L Cord/Resistance green + blue mat Reps/Duration 5 reps fwd, 2 reps side& back Comments cued more upright posture and foot clearance Therapeutic Exercises Standing Exercises shld ext Standing Exercise Name semitandem stance Side bilateral Resistance Tb #3 Reps/Minutes x20 each UE Comments cued elongated posture, interscap engagement paleoff press Standing Exercise Name 1. press out 2. Rotation (arms front) Side bilateral Resistance level 3 band Equipment Used standing on foam Reps/Minutes 1. 20 press out 2. 8 R, 10 L rotation Comments monitored for pain range PT-OP-T Assessment and Plan Start: 11/01/23 16:45 Freq: Status: Active Protocol: Document 12/30/23 13:01 SP (Rec: 12/30/23 14:02 SP [id number]) Physical Therapy Assessment Goals Three Impairment impairments in flexibility and strength Short Term Goal (STG) Patient to be instructed in individualized and progressive HEP for purposes of improving flexibility and strength in hips and core 12/16/23: good goal progress, ongoing progression STG Duration 12/16/23 Physical Metallurgist Goal (LTG) Patient to be independent and compliant with HEP and demonstrate improvedments in flexibility to WNL and strength to at least 4+/5 all muscle groups in hips and core for improved spinal support and function LTG Duration 02/02/24 Two Impairment Oswestry disability index score 22% Short Term Goal (STG) Improve Oswestry score to no greater than 15% as measure of improved function 12/16/23: goal progress, dec to 19% STG Duration 12/16/23 Half-Way Goal (LTG) Improve Oswestry score to no greater than 10% as measure of improved function and quality of life. LTG Duration 10/17/24 One Impairment lumbar spine pain which increases with standing and walking as high as 11/25 Short Term Goal (STG) Patient will be able to stand for at least 10 min without an increase in pain 12/16/23: goal met STG Duration 12/16/23 Half-Way Goal (LTG) Patient will be able to walk at least 1 mile without an increase in pain LTG Duration 02/02/24 Assessment Summary Assessment Tx focused on funtional core and LE strengthening during uneven surface activities. Cues for upright posture /c rhomboid and Core fac to assist midline stability, pelvis under trunk and over even BLEs during shuttle balance CG brief<Min/Mod A. Pt tolerated tx well, reported R knee jt irritation rubbing by end tx, stood for full tx until end brief seated recovery before left reported due to BLE tiring, back felt ok. Physical Therapy Plan Frequency and Duration Frequency of Treatment 2x/Week Duration of treatment (weeks) 12 Plan of Care Start Date 11/02/23 Plan of Care End Date 02/02/24 Therapeutic Interventions Therapeutic Interventions Gait Training,Home Exercise Program,Manual Therapy, Neuromuscular Re-education, Orthotic/Prosthetic Management ,Patient/Caregiver Education, Self-Care/Home Management,Soft Tissue Mobilization,Taping, Therapeutic Activities, Therapeutic Exercises Modalities Cold Pack/Ice Massage,Electric Stimulation,Hot Packs, Traction- Mechanical, Ultrasound Next Visit Focus/Plan Next Note Type Treatment Note Next Visit Plan Recheck HEP: added TA step ups , paloff press& rotation, continue Review supine pullover, bicycle, try bug, standing counter stretch.
--- NOTE | 2024-01-02 12:01 | PT.OTN ---
Current Diagnoses Other chronic pain (01/02/24) Low back pain, unspecified (01/02/24) Other symptoms and signs involving the musculoskeletal system (01/02/24) Physical Therapy Treatment Note PT-OP-A Visit Information Start: 11/01/23 16:45 Freq: Status: Active Protocol: Document 01/02/24 11:19 SP (Rec: 01/02/24 12:03 SP [id number]) Out-Patient Physical Therapy Visit Information Visit Information Visit Type Treatment Note Visit Note 07/26 post PN Pt going out of town / Visit Start Time 11:19 Visit Stop Time 12:01 Visit Number 12 Number of EMPLOYMENT SERVICES DIRECTOR Visits 3 Evaluation Information Evaluation Date 11/02/23 Precautions Precautions legs give way occasionally, unpredictable PT-OP-B Current Condition Start: 11/01/23 16:45 Freq: Status: Active Protocol: Document 11/24/23 14:30 SAK (Rec: 11/24/23 15:37 SAK [id number]) Current Condition History of Current Condition Onset Date 2-3 years Current Complaints LBP History of Current Condition 2-3 yr history LBP gradual onset. Has had cortisone shot with min relief. Saw orthopedist. MRI showed stenosis. Takes anti- inflammatory. Activity level used to be run 3-5 miles per day, now walking just down to his boat and back to car. Pain increases with prolonged standing. HIstory paramjit XAVIER at [facility] 2014 and 2016 with good recovery. No other exercises besides walking but that is limited. Open to PT suggestion for aquatic exercises. Has trekking poles. Denies N/T, but reports burning in low back. States legs occasionally gives way, unpredictable. Walking up an incline much easier than down. Reports his left arch collapsed several years ago, he has orthotic, brace, and uses trekking pole or poles for balance and stability. Prior Treatments and Tests MRI: stenosis. Future Testing and Treatments Planned nothing planned PT-OP-C Subjective Start: 11/01/23 16:45 Freq: Status: Active Protocol: Document 01/02/24 11:19 SP (Rec: 01/02/24 12:03 SP [id number]) OP-PT Subjective Patient Comments Patient Comments Pt reports takes Glucosamine suppliment to support [employer], unsure if doing anything but hoping helps. He reports wants to hold off on shuttle balance today due to bothered his knees for 2 days after last tx. PT-OP-J Posture/Palpation/Skin Start: 11/01/23 16:45 Freq: Status: Active Protocol: Document 11/02/23 13:00 [facility] (Rec: 11/02/23 13:53 [facility] [id number]) Posture Evaluation Position Standing Head/C-Spine Posture Forward Head T-Spine Posture Increased Kyphosis L-Spine Posture Increased Lordosis Shoulder Posture (L) Elevated Arm Posture (L) Internally Rotated,(R) Internally Rotated Pelvis Posture Anteriorly Tilted Weight Distribution Weight Shifted Right Knee Posture (L) Genu Valgus Ankle/Foot Posture (L) Pronated Palpation Assessment Location lumbar spine Palpation Findings Muscle Guarding PT-OP-K Range of Motion Start: 11/01/23 16:45 Freq: Status: Active Protocol: Document 11/02/23 13:00 SAK (Rec: 11/02/23 13:53 [facility] [id number]) Lumbar Spine Range of Motion Lumbar Spine Active Flexion 40 Extension 0 Rotation Left 10 Rotation Right 15 Lateral Flexion Left 20 Lateral Flexion Right 20 ROM Limitations Bony Restriction Hip Goniometric Range of Motion Hip paramjit Comments SLR R 50, L 55 Hip ROM Limitations Hip ROM Limitations Soft Tissue Tightness PT-OP-M Strength Start: 11/01/23 16:45 Freq: Status: Active Protocol: Document 11/02/23 13:00 [facility] (Rec: 11/02/23 13:53 [facility] [id number]) Trunk Strength Trunk Manual Muscle Testing Flexion 3+ Fair+ Extension 4- Good- Hip Strength Hip Manual Muscle Testing Left Flexion (L2) 4+ Good+ Extension (S1) 3+ Fair+ Abduction 3+ Fair+ External Rotation 4- Good- Internal Rotation 4 Good Right Flexion (L2) 4+ Good+ Extension (S1) 4- Good- Abduction 4- Good- Adduction 4- Good- External Rotation 4 Good Internal Rotation 4 Good Knee Strength Knee Manual Muscle Testing paramjit Flexion (S2) 4+ Good+ Extension (L3) 4+ Good+ Ankle/Foot Strength Ankle and Foot Manual Muscle Testing paramjit Dorsiflexion (L4) 4 Good Plantarflexion (S1) 4 Good PT-OP-Q Treatments Start: 11/01/23 16:45 Freq: Status: Active Protocol: Document 01/02/24 11:19 SP (Rec: 01/02/24 12:03 SP [id number]) Cardio Equipment Recumbent Elliptical (Biodex) Duration (Minutes) 6 Resistance 6 Seat Position 14 Other LE only, 43 RPMs Gym Equipment Shuttle Recovery Bilateral Squats Details tactile cue feet //, knee abd midline L Resistance 87# (3 navy) Next increase 100 # Shuttle Recovery Platform Stable Reps/Time x20 Therapeutic Exercises Supine Exercises bicycle Supine Exercise Name 1. isometric table top hold 2. Bicycle Resistance HEP reviewed Equipment Used 2 pillows under Reps/Minutes 1. 10 Sh x5 2. 10x 2 sets Comments small movement slower pacing, cues for core overhead weight lowering Supine Exercise Name reviewed & added to HEP- declined HO Resistance 1- 5# DB between BUEs Equipment Used hooklying Reps/Minutes 15x2 Comments cued slow painfree range bridge Supine Exercise Name HEP reviewed- segmental roll up/down Reps/Minutes 5 SH x10 Comments cued for slow for LS mobility bent knee fall out Side bilateral Resistance AROM> TB #2 loop at thighs Reps/Minutes 2min alternating Comments Verbal cues TA fac, back pelvis level on table, range maintain level pelvis piriformis stretch Supine Exercise Name HEP reviewed but prefers more effective seated vs hooklying 01/02/24 Side bilateral Resistance opp knee bent Reps/Minutes 2x60 Comments cued slow painfree range figure 4 Supine Exercise Name HEP reviewed but prefers more effective seated vs hooklying 01/02/24 Side bilateral Resistance opp knee bent Reps/Minutes 2x30 Comments cued slow painfree range- maintain level pelvis SKTC Supine Exercise Name HEP reviewed Side bilateral Reps/Minutes 2x30 or 60 Comments good feedback LS stretch HS stretch Supine Exercise Name hands behind thigh, active stretch Side bilateral Reps/Minutes 30 sec Sitting Exercises piriformis Sitting Exercise Name HEP reviewed Side bilateral Reps/Minutes x30 Comments finds more effective over hooklying figure 4 Sitting Exercise Name HEP reviewed Side bilateral Reps/Minutes x30 Comments finds more effective over hooklying PT-OP-T Assessment and Plan Start: 11/01/23 16:45 Freq: Status: Active Protocol: Document 01/02/24 11:19 SP (Rec: 01/02/24 12:03 SP [id number]) Physical Therapy Assessment Goals Three Impairment impairments in flexibility and strength Short Term Goal (STG) Patient to be instructed in individualized and progressive HEP for purposes of improving flexibility and strength in hips and core 12/16/23: good goal progress, ongoing progression STG Duration 12/16/23 Intermediate Goal (LTG) Patient to be independent and compliant with HEP and demonstrate improvedments in flexibility to WNL and strength to at least 4+/5 all muscle groups in hips and core for improved spinal support and function LTG Duration 02/02/24 Two Impairment Oswestry disability index score 22% Short Term Goal (STG) Improve Oswestry score to no greater than 15% as measure of improved function 12/16/23: goal progress, dec to 19% STG Duration 12/16/23 Transport Specialist Goal (LTG) Improve Oswestry score to no greater than 10% as measure of improved function and quality of life. LTG Duration 02/02/24 One Impairment lumbar spine pain which increases with standing and walking as high as 11/25 Short Term Goal (STG) Patient will be able to stand for at least 10 min without an increase in pain 12/16/23: goal met STG Duration 12/16/23 Transport Specialist Goal (LTG) Patient will be able to walk at least 1 mile without an increase in pain LTG Duration 02/02/24 Assessment Summary Assessment Pt tolerated tx well, focus on flexibility and core HEP review in hooklying today with good feedback response, reducation back tightness. Provided theraband for progression core engagement during knee fallouts with cues for level pelvis. Cues provided for segmental mobility during bridge to allow LS flexibility and improved TA engagement. Pt reports prefers hip stretching Fig 4 and piriformis stretch seated over hooklying, more range and effectiveness. Physical Therapy Plan Frequency and Duration Frequency of Treatment 2x/Week Duration of treatment (weeks) 12 Plan of Care Start Date 11/02/23 Plan of Care End Date 02/02/24 Therapeutic Interventions Therapeutic Interventions Gait Training,Home Exercise Program,Manual Therapy, Neuromuscular Re-education, Orthotic/Prosthetic Management ,Patient/Caregiver Education, Self-Care/Home Management,Soft Tissue Mobilization,Taping, Therapeutic Activities, Therapeutic Exercises Modalities Cold Pack/Ice Massage,Electric Stimulation,Hot Packs, Traction- Mechanical, Ultrasound Next Visit Focus/Plan Next Note Type Treatment Note Next Visit Plan Recheck HEP and added TA step ups, paloff press& rotation ( uneven surface in PT), continue Review supine wt'd OH , bicycle, try bug, standing counter stretch.
--- NOTE | 2024-03-05 11:42 | PT.OPDS ---
Current Diagnoses Other chronic pain (01/25/24) Low back pain, unspecified (01/25/24) Other symptoms and signs involving the musculoskeletal system (01/25/24) Visit Care Team Role Provider Type Mich Oneal MD Attending Provider Physician Family Provider Primary Care Provider Referring Provider Specialty: Internal Medicine Address: [address] [place] [address], [facility] Email: [email or web address] Visit Number Visit Number 14 Discharge Summary PT-OP-B Current Condition Start: 11/01/23 16:45 Freq: Status: Active Protocol: Document 01/17/24 13:45 SAK (Rec: 01/17/24 14:46 SAK [id number]) Current Condition History of Current Condition Onset Date 2-3 years Current Complaints LBP History of Current Condition 2-3 yr history LBP gradual onset. Has had cortisone shot with min relief. Saw orthopedist. MRI showed stenosis. Takes anti- inflammatory. Activity level used to be run 3-5 miles per day, now walking just down to his boat and back to car. Pain increases with prolonged standing. HIstory paramjit XAVIER at [facility] 2014 and 2016 with good recovery. No other exercises besides walking but that is limited. Open to PT suggestion for aquatic exercises. Has trekking poles. Denies N/T, but reports burning in low back. States legs occasionally gives way, unpredictable. Walking up an incline much easier than down. Reports his left arch collapsed several years ago, he has orthotic, brace, and uses trekking pole or poles for balance and stability. Prior Treatments and Tests MRI: stenosis. Future Testing and Treatments Planned nothing planned Treatment Goals Patient/Caregiver Goals Decrease pain, improve activity tolerance PT-OP-C Subjective Start: 11/01/23 16:45 Freq: Status: Active Protocol: Document 01/25/24 11:41 NBM (Rec: 01/25/24 12:36 NBM [id number]) OP-PT Subjective Patient Comments Patient Comments Pt reports legs giving away hasn't been a recent issue. PT-OP-J Posture/Palpation/Skin Start: 11/01/23 16:45 Freq: Status: Active Protocol: Document 11/02/23 13:00 SAK (Rec: 11/02/23 13:53 SAK [id number]) Posture Evaluation Position Standing Head/C-Spine Posture Forward Head T-Spine Posture Increased Kyphosis L-Spine Posture Increased Lordosis Shoulder Posture (L) Elevated Arm Posture (L) Internally Rotated,(R) Internally Rotated Pelvis Posture Anteriorly Tilted Weight Distribution Weight Shifted Right Knee Posture (L) Genu Valgus Ankle/Foot Posture (L) Pronated Palpation Assessment Location lumbar spine Palpation Findings Muscle Guarding PT-OP-K Range of Motion Start: 11/01/23 16:45 Freq: Status: Active Protocol: Document 11/02/23 13:00 [facility] (Rec: 11/02/23 13:53 [facility] [id number]) Lumbar Spine Range of Motion Lumbar Spine Active Flexion 40 Extension 0 Rotation Left 10 Rotation Right 15 Lateral Flexion Left 20 Lateral Flexion Right 20 ROM Limitations Bony Restriction Hip Goniometric Range of Motion Hip paramjit Comments SLR R 50, L 55 Hip ROM Limitations Hip ROM Limitations Soft Tissue Tightness PT-OP-M Strength Start: 11/01/23 16:45 Freq: Status: Active Protocol: Document 11/02/23 13:00 [facility] (Rec: 11/02/23 13:53 [facility] [id number]) Trunk Strength Trunk Manual Muscle Testing Flexion 3+ Fair+ Extension 4- Good- Hip Strength Hip Manual Muscle Testing Left Flexion (L2) 4+ Good+ Extension (S1) 3+ Fair+ Abduction 3+ Fair+ External Rotation 4- Good- Internal Rotation 4 Good Right Flexion (L2) 4+ Good+ Extension (S1) 4- Good- Abduction 4- Good- Adduction 4- Good- External Rotation 4 Good Internal Rotation 4 Good Knee Strength Knee Manual Muscle Testing paramjit Flexion (S2) 4+ Good+ Extension (L3) 4+ Good+ Ankle/Foot Strength Ankle and Foot Manual Muscle Testing paramjit Dorsiflexion (L4) 4 Good Plantarflexion (S1) 4 Good PT-OP-T Assessment and Plan Start: 11/01/23 16:45 Freq: Status: Active Protocol: Document 03/05/24 11:41 [facility] (Rec: 03/05/24 11:42 [facility] [id number]) Physical Therapy Plan Discharge Physical Therapy Discharge Reasons Goals Met
== END 2024-03-07 14:04 | disposition home or self-care (01) ==
LOC: PHYS 11:30
PROVIDERS: Family Provider Internal Medicine; PCP Internal Medicine; Referring Provider Internal Medicine; Visit Provider Internal Medicine
DX: M54.50 Low back pain, unspecified (principal); G89.29 Other chronic pain; R29.898 Other symptoms and signs involving the musculoskeletal system
CPT/HCPCS: 97110; 97112; 97140; 97162; 97535

== ENCOUNTER 2024-02-21 08:27 | Day surgery (SDC) | payer MEDICARE, OTHER, SELFPAY ==
--- NOTE | 2024-02-21 | PATH_ITS ---
[facility] Accession Number: [id number] No. of containers..02 Tissue . 01 Material submitted: . PART A: colon - TRANSVERSE POLYP PART B: cecum - CECUM . 01 Diagnosis: Part A: TRANSVERSE POLYP: Colonic mucosa with benign lymphoid aggregate. . Specimen Comments: Additional step sections were examined. . Part B: CECUM: Colonic mucosa with no diagnostic alterations. No active inflammation, granulomas, dysplasia, or malignancy identified. [facility] 02/28/2024 1414 Local . 01 Electronically signed: . Zac Gonzalez MD, Pathologist NPI- [id number] . 01 Gross description: . Part A: TRANSVERSE POLYP: Received in formalin is 1 fragment(s) of abebe, soft tissue measuring 0.3 x 0.2 x 0.1 cm submitted entirely in 1 cassette(s) . Part B: CECUM: Received in formalin are 3 fragment(s) of abebe, soft tissue measuring 0.2 x 0.2 x 0.1 cm to 0.4 x 0.2 x 0.2 cm submitted entirely in 1 cassette(s) /[facility] 02/28/2024 1414 Local . 01 Pathologist provided ICD-10: K63.89 . 01 CPT . 033248, [id number] Specimen Comment: A courtesy copy of this report has been sent to [phone] Performed at: [address] [id number] MD Zac Gonzalez MD Phone: [phone]
[2024-02-21 09:11] VITALS: BP 123/79; PULSE 99; RESP 18; TEMP 36.3; O2SAT 96
--- NOTE | 2024-02-21 09:59 | PM.HP.1 ---
History of Present Illness History of Present Illness Date Patient Seen: 02/21/24 Time Patient Seen: 09:59 Chief complaint: Screening Colonoscopy Narrative: 73-year-old man personal history of colonic polyps here for screening colonoscopy. Last colonoscopy 2018. No abdominal concerns today. [facility] Medical History Slow transit constipation History of nephrolithiasis (~2021) Left-sided sensorineural hearing loss Nephrolithiasis Impaired fasting glucose Overweight History of colonic polyps History of atrial fibrillation Mixed hyperlipidemia Allergic rhinitis Primary osteoarthritis involving multiple joints Essential hypertension Actinic keratosis (~1994) Chronic back pain (~2016) Chicken pox (~1984) Cataracts, bilateral (~2021) Bilateral nephrolithiasis Abrasion of skin of right lower leg History of elevated PSA (~2019) BPH w urinary obs/LUTS H/O nephrolithotomy with removal of calculi BPH (benign prostatic hyperplasia) Skin cancer (~1995) Hearing loss (~2018) Surgical History Anesthesia History of cataract removal with insertion of prosthetic lens (~2021) History of hip surgery History of circumcision History of urethral stent Family History Mother Diabetes mellitus Father Respiratory arrest Brother Cancer Social History marital status: details: (Jammie), step-children, retired [employer], 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 Smoking Status: Never smoker alcohol intake: current Type(s) of exercise: walking frequency: daily Meds Home Medications and Allergies Home Medications Medication Instructions Recorded Confirmed Type amlodipine 10 mg tablet 10 mg PO DAILY #90 tabs 10/31/23 02/21/24 Rx finasteride 5 mg tablet 5 mg PO DAILY #90 tabs 10/31/23 02/21/24 Rx fluticasone propionate 50 2 spray intranasal PRN PRN Allergy 10/31/23 02/21/24 Rx mcg/actuation nasal Symptoms #48 grams spray,suspension gabapentin 300 mg capsule 600 mg (2 x 300 mg) PO DAILY #180 10/31/23 02/21/24 Rx caps meloxicam 15 mg tablet 15 mg PO DAILY #90 tabs 10/31/23 02/21/24 Rx rosuvastatin 5 mg tablet 5 mg PO BEDTIME #90 tabs 10/31/23 02/21/24 Rx tamsulosin 0.4 mg capsule 0.8 mg (2 x 0.4 mg) PO BEDTIME 10/31/23 02/21/24 Rx #180 caps zolpidem 5 mg tablet 5 mg PO PRN PRN Sleep #30 tabs 10/31/23 02/21/24 Rx triamcinolone acetonide 0.1 % topical 01/23/24 01/23/24 History topical ointment Allergies Allergy/AdvReac Type Severity Reaction Status Date / Time cat dander Allergy Mild congestion Verified 02/21/24 09:07 pollen extracts Allergy Mild Sneezing Verified 02/21/24 09:07 lisinopril AdvReac Intermediate spinning Verified 02/21/24 09:07 vaccine adjuvant system, AdvReac Intermediate left-sided Verified 02/21/24 09:07 [id number] liposomal hearing [From Shingrix (PF)] loss varicella-zoster virus AdvReac Intermediate left-sided Verified 02/21/24 09:07 glycoprotein E, recombinant hearing [From Shingrix (PF)] loss Exam Vital Signs (past 8 hours): - 02/21/24 09:11 Temperature 97.4 F L Pulse Rate 99 H Respiratory Rate 18 Blood Pressure 123/79 Pulse Oximetry 96 Oxygen Delivery Method Room Air Oxygen Delivery Method Room Air Narrative Exam Narrative: General adult man alert oriented no acute distress Chest nonlabored respiration Extremities warm well perfused Assessment & Plan Assessment and plan (1) History of colonic polyps: Status: Acute Assessment & Plan narrative: The patient requires colorectal screening and colonoscopy is recommended. Technical details were discussed. Risks, benefits, alternatives explained. Risks including but not limited to myocardial infarction, aspiration, bleeding, pain, missed lesion, incomplete examination, need for further radiographic studies, intestinal injury, and need for major abdominal surgery were discussed. All questions were answered to their satisfaction, and they are in agreement with this plan. Time-Based Coding :: [TOTAL MINUTES] spent with patient and on the chart (including review of chart, obtaining history, exam, reviewing outside data, placing orders, documenting exam and treatment plan, and counseling patient) on [DATE].
[2024-02-21 10:39] VITALS: BP 96/59; PULSE 86; RESP 15; TEMP 37.3; O2SAT 93
[2024-02-21 10:40] VITALS: BP 93/60; PULSE 81; RESP 21; O2SAT 93
[2024-02-21 10:46] VITALS: BP 104/65; PULSE 77; RESP 16; O2SAT 93
--- NOTE | 2024-02-21 10:46 | P.OP.COLON_ITS ---
Operative Date/Time/Diagnoses Date of procedure: 02/21/24 Time of procedure: 10:46 Pre-op diagnosis: Personal history of colonic Post-op diagnosis: other (Colonic polyp x1) Procedure & Clinicians Study performed: Screening colonoscopy Same procedure as scheduled: Yes Indications: Screening Surgeon: Anshul Garber Procedure Notes Procedure in detail: The history and physical was performed/updated and the patient is ASA class is 2. The procedure was discussed in detail with the patient. Potential risks complications including infection, bleeding, missed diagnosis, perforation, need for surgery, and were explained. Their questions were answered and informed consent was obtained. Patient was brought to the procedure room and placed standard monitoring equipment. The patient's vital signs were monitored continuously throughout the entire procedure. Prior to starting time-out was performed. The patient was placed in the left lateral recumbent position. Procedural sedation was administered by anesthesia. Examination began with a thorough inspection of the perianal area there was no evidence of fissures, fistulae, external hemorrhoids or cutaneous malignancy. The colonoscopy scope was then placed into the anal canal and was advanced to the cecum, which was identified by the ileocecal valve, the appendiceal orifice and the confluence of the taenia. The scope was then slowly withdrawn examining colon thoroughly in all directions, irrigating it of any residual stool. The scope was retroflexed within the rectum The patient tolerated the procedure well. They will be discharged once criteria are met. The prep was of good/excellent quality. The withdrawl time was 10 minutes. FINDINGS * Inflammation with a small ulceration on the tissue within the cecum directly adjacent to the ileocecal valve. Biopsies taken with forceps. * Transverse colon 3 mm polyp removed with biopsy forceps * Specimen(s): other (Cecum biopsy, transverse colon polyp,) Post-procedure Plan for aftercare: Follow-up is dependent on pathology findings Disposition: same day surgery
[2024-02-21 10:50] VITALS: BP 100/65; PULSE 73; RESP 16; O2SAT 94
--- NOTE | 2024-02-21 11:00 | SUR.PHASEII ---
Patient dishcharged home with in stable condition. All belongings returned; walking stick also returned. Patient to car with volunteer via wheelchair.
== END 2024-02-21 10:59 | disposition home or self-care (01) ==
PROVIDERS: Family Provider Internal Medicine; PCP Internal Medicine; Referring Provider Surgery; Visit Provider Surgery
PROC: 0DJD8ZZ Inspection of Lower Intestinal Tract, Via Natural or Artificial Opening Endoscopic (ICD-10-PCS; CPT 45378; principal; 2024-02-21 09:45)
DX: Z12.11 Encounter for screening for malignant neoplasm of colon (principal); Z86.0100 Personal history of colon polyps, unspecified; K63.5 Polyp of colon
CPT/HCPCS: 45380; J2704

== ENCOUNTER → 2024-09-19 09:37 | Outpatient (CLI) | payer MEDICARE, OTHER, SELFPAY | PROVIDERS: Family Provider Internal Medicine; PCP Internal Medicine; Referring Provider Internal Medicine; Visit Provider Internal Medicine | DX: R00.2 Palpitations (principal) | CPT/HCPCS: 93246; 93248 ==

== ENCOUNTER → 2024-11-22 07:32 | Outpatient (CLI) | payer MEDICARE, OTHER, SELFPAY ==
[2024-11-22 08:32] LABS: Hemoglobin A1C% w Est Avg Glu 6.0 % (4.0-6.0)
[2024-11-22 08:43] LABS: Blood Urea Nitrogen 18 mg/dL (9-20); Calcium 9.6 mg/dL (8.4-10.2); Carbon Dioxide 24 mmol/L (22-32); Chloride 106 mmol/L (98-107); Cholesterol 174 mg/dL (140-199); Estimated Glomerular Filt Rate > 60 mL/min (>60); Glucose 104 mg/dL (70-99); HDL Cholesterol 53 mg/dL (40-60); HEMOLYSIS < 15 (0-50); Potassium 4.4 mmol/L (3.4-5.1); Sodium 139 mmol/L (137-145); Triglycerides 157 mg/dL (35-150)
== END ==
PROVIDERS: PCP Internal Medicine; Referring Provider Internal Medicine; Visit Provider Internal Medicine
DX: R73.01 Impaired fasting glucose (principal); E78.2 Mixed hyperlipidemia; I10 Essential (primary) hypertension
CPT/HCPCS: 36415; 80048; 80061; 83036; 84450

== ENCOUNTER → 2025-01-29 09:39 | Outpatient (CLI) | payer MEDICARE, OTHER, SELFPAY ==
[2025-01-29 11:38] LABS: Prostate Specific Antigen 1.61 ng/mL (0.10-4.00)
== END ==
PROVIDERS: PCP Internal Medicine; Referring Provider Urology; Visit Provider Urology
DX: N40.1 Benign prostatic hyperplasia with lower urinary tract symptoms (principal); Z12.5 Encounter for screening for malignant neoplasm of prostate; N13.8 Other obstructive and reflux uropathy
CPT/HCPCS: 36415; 84153

== ENCOUNTER → 2025-01-30 09:42 | Outpatient (CLI) | payer MEDICARE, OTHER, SELFPAY ==
--- NOTE | 2025-01-30 09:43 | DI.RAD.S_ITS ---
PROCEDURE: XR KUB INDICATIONS: 74 y/o M w/ nephrolithiasis, please eval. TECHNIQUE: One view of the abdomen acquired. COMPARISON: [facility], CR, XR KUB, 01/05/2024, 12:39. FINDINGS: Surgical changes and devices: Partially evaluated bilateral hip arthroplasty. Bowel: Bowel gas pattern is nonobstructive. Soft tissues: Oval radiodensity measuring 10 mm projecting over the right inferior renal pole. 11 mm radiodensity projecting over the left inferior renal pole. There are 2 adjacent radiodensities in the right mid pelvis measuring 9 and 6 mm, which could represent distal right ureteral calcifications versus pelvic phleboliths. Visualized solid organ contours appear normal in size. Bones: No suspicious bony lesions. IMPRESSION: Possible renal calculi projecting over the inferior poles of the bilateral kidneys and distal right ureter. Approved by: Abby Hernandez M.D.,Ph.D. on 01/30/2025 at 17:14
== END ==
LOC: RAD 09:43
PROVIDERS: PCP Internal Medicine; Referring Provider Urology; Visit Provider Urology
DX: Z87.442 Personal history of urinary calculi (principal)
CPT/HCPCS: 74018

== ENCOUNTER → 2025-03-19 13:03 | Outpatient (CLI) | payer MEDICARE, OTHER, SELFPAY ==
--- NOTE | 2025-03-19 13:04 | DI.CT.S_ITS ---
PROCEDURE: CT KIDNEY URETER BLADDER (KUB) INDICATIONS: 74 y/o M w/ concern for right ureteral calculus, please eval TECHNIQUE: Axial sections were acquired from the lung bases to the pubic symphysis. Coronal and sagittal reformats were performed. For radiation dose reduction, the following was used: automated exposure control, adjustment of mA and/or kV according to patient size. COMPARISON: [facility], CT, CT KIDNEY URETER BLADDER (KUB), 01/18/2024, 11:28. FINDINGS: Image quality: Diagnostic. Lower Chest: No significant findings. URINARY: Kidney/ureter: Bilateral nonobstructing renal stones measuring up to 7 mm on the right and 9 mm on the left and measuring between 1000 and 1200 Hounsfield units in density. No hydronephrosis. No significant perinephric stranding. Bilateral ureters are normal in course and caliber without ureteral stone or periureteral stranding. Bladder: Multiple urinary bladder stones are identified in the dependent portions of the bladder. No abnormal wall thickening. No perivesicular stranding. Persistent prostatomegaly causing mass effect upon the posterior, inferior urinary bladder wall. ABDOMEN: Liver: No contour-deforming solid mass. Gallbladder: Multiple layering gallstones without evidence for wall thickening or pericholecystic stranding. Biliary ducts: No biliary dilation. Pancreas: No ductal dilation. No peripancreatic inflammatory changes. Spleen: Size is within normal limits. Adrenal Glands: No adrenal nodules. Stomach and Bowel: Normal colonic caliber, without significant wall thickening. No evidence for small bowel obstruction or associated inflammatory changes. Normal appendix. Peritoneum: No abnormal intraperitoneal fluid. No free air. Multiple scattered punctate peritoneal calcifications as before. Ventral Wall: No hernia. Abdominal Nodes: No enlarged retroperitoneal or mesenteric lymph nodes. Vessels: Aorta and inferior vena cava are normal in size. PELVIS: Pelvic Organs: Prostatomegaly. Pelvic Nodes: Unremarkable. Miscellaneous: No inguinal hernias are seen. Bones: No acute vertebral body compression fractures. Multilevel spondylitic changes throughout the imaged spine. No suspicious osseous lesions. Stable postsurgical changes of bilateral total hip arthroplasty. Moderate beam hardening/streak artifact from surgical hardware obscures visualization of the adjacent structures of the lower pelvis. IMPRESSION: CT abdomen and pelvis without acute abnormalities. Bilateral nonobstructing renal stones measuring up to 7 mm on the right and 9 mm on the left. No hydronephrosis or perinephric stranding. No ureteral stones identified. No hydroureter. Multiple dependent urinary bladder stones. No CT evidence for cystitis. Prostatomegaly with associated mass effect upon the inferior urinary bladder wall. Other chronic/non-acute findings as above. Dictated by: Hai Hodges M.D. on 03/19/2025 at 16:35 Approved by: Hai Hodges M.D. on 03/19/2025 at 16:44
== END ==
LOC: CT 13:04
PROVIDERS: PCP Internal Medicine; Referring Provider Urology; Visit Provider Urology
DX: N28.1 Cyst of kidney, acquired (principal); N21.0 Calculus in bladder; K80.20 Calculus of gallbladder without cholecystitis without obstruction; N40.0 Benign prostatic hyperplasia without lower urinary tract symptoms; Z87.442 Personal history of urinary calculi; Z96.643 Presence of artificial hip joint, bilateral
CPT/HCPCS: 74176